=== PATIENT | male | born 1960 | race American Indian/Alaskan Native ===

== ENCOUNTER 2021-09-22 07:23 | Inpatient (IN) | payer MEDICAID, OTHER ==
[2021-09-22] MEDS ORDERED: Lactated Ringers 1,000 ML IV ONE (07:45)
[2021-09-22] MEDS ORDERED: Cyanocobalamin (Vitamin B12) 1,000 MCG/ML SDV IM ONE (07:45)
[2021-09-22] MEDS ORDERED: fentaNYL 100 MCG/2 ML SDV ONE (08:05)
[2021-09-22] MEDS ORDERED: Midazolam 1 MG/ML 2 ML SDV ONE (08:05)
[2021-09-22] MEDS ORDERED: Propofol 200 MG/20 ML SDV ONE (08:06)
[2021-09-22] MEDS ORDERED: Glycopyrrolate 0.2 MG/ML 2 ML SDV IVPUSH ONE (08:15)
[2021-09-22] MEDS ORDERED: MVI, Adult with Vitamin K 10 ML, Thiamine 200 MG, Zinc/Copper/Manganese/Selenium 1 ML i... IV ONE ×4 (08:45)
[2021-09-22] MEDS ORDERED: Ondansetron 4 MG/2 ML SDV IVPUSH PRN (14:00)
[2021-09-22] MEDS: Dextrose 5%-Lactated Ringers 1,000 ML IV SCH (14:00)
[2021-09-22] MEDS: Pantoprazole 40 MG Vial IVPUSH SCH (14:58)
[2021-09-22] MEDS: Magnesium Sulfate/Water 2 GM in Premix Bag 1 BAG IV SCH ×2 (15:02→20:10)
[2021-09-22] MEDS ORDERED: Cyclobenzaprine 10 MG Tab PO PRN (20:05)
[2021-09-22] MEDS ORDERED: Acetaminophen 325 MG Tab PO PRN (20:05)
[2021-09-22] MEDS: Mirtazapine 15 MG Tab PO SCH (20:13)
[2021-09-22] MEDS: Citalopram 20 MG Tab PO SCH (20:13)
[2021-09-22] MEDS: Tamsulosin 0.4 MG Cap.ER PO SCH (20:52)
[2021-09-22] MEDS ORDERED: Melatonin 3 MG Tab PO SCH (21:00)
[2021-09-22] MEDS ORDERED: Carvedilol 3.125 MG Tab PO ONE (21:00)
[2021-09-23] MEDS: Magnesium Sulfate/Water 2 GM in Premix Bag 1 BAG IV SCH ×4 (02:12→20:25)
[2021-09-23] MEDS: Dextrose 5%-Lactated Ringers 1,000 ML IV SCH ×3 (04:07→23:42)
[2021-09-23] MEDS: Carvedilol 3.125 MG Tab PO SCH ×2 (06:10→22:27)
[2021-09-23] MEDS: Isosorbide Mononitrate 30 MG Tab.ER PO SCH (06:10)
[2021-09-23] MEDS ORDERED: Meropenem 500 MG SDV ONE (07:44)
[2021-09-23] MEDS ORDERED: Lidocaine 1% with EPINEPHrine 1:100,000 50 ML MDV ONE (07:44)
[2021-09-23] MEDS ORDERED: Bupivacaine 0.5% 50 ML MDV ONE (07:44)
[2021-09-23] MEDS ORDERED: fentaNYL 250 MCG/5 ML SDV ONE ×2 (08:15→16:27)
[2021-09-23] MEDS ORDERED: Ondansetron 4 MG/2 ML SDV ONE (08:16)
[2021-09-23] MEDS ORDERED: Glycopyrrolate 0.2 MG/ML 5 ML MDV ONE (08:16)
[2021-09-23] MEDS ORDERED: Dexamethasone 4 MG/ML SDV ONE (08:16)
[2021-09-23] MEDS ORDERED: Neostigmine Methylsulfate 1 MG/ML 5 ML Syringe ONE (08:16)
[2021-09-23] MEDS ORDERED: Propofol 200 MG/20 ML SDV ONE ×2 (08:16→14:54)
[2021-09-23] MEDS ORDERED: Succinylcholine 200 MG/10 ML MDV ONE (08:16)
[2021-09-23] MEDS ORDERED: Rocuronium 50 MG/5 ML Vial ONE (08:16)
[2021-09-23] MEDS: Aspirin 81 MG Tab.EC PO SCH (08:21)
[2021-09-23] MEDS: Levothyroxine 112 MCG Tab PO SCH (08:42)
[2021-09-23] MEDS: Levothyroxine 25 MCG Tab PO SCH (08:43)
[2021-09-23] MEDS: Lisinopril 10 MG Tab PO SCH (08:44)
[2021-09-23] MEDS: amLODIPine 5 MG Tab PO SCH (08:45)
--- NOTE | 2021-09-23 08:57 | PN ---
DATE OF SERVICE: 09/23/2021 SUBJECTIVE: Nacho was admitted yesterday for partial small bowel obstruction after he had an upper endoscopy. Nacho was admitted after the EGD. He has been sick for approximately 9 months. He will take 2 to 3 bites of food, nauseated, midabdominal pain, crampy. He will usually throw up or get dry heaves. Weight loss to 60 pounds. He was hospitalized in December 2020 for pancreatitis, history of alcohol abuse, chronic pain. He uses medical cannabis and either takes pills or vapes, and he said this will help with nausea and then he also will be able to eat a little bit of his evening meal. PAST MEDICAL HISTORY: Laparoscopic Dolores-en-Y gastric bypass surgery was 04/13/2006. Consult weight was 358.7, preop weight 364, and today's weight is 192 pounds 4.8 ounces. Unspecified surgical malabsorption, B12 deficiency, COPD, coronary artery disease, diabetes mellitus, GERD, history of heart artery stent, hyperlipidemia, alcohol dependence, pancreatitis, MRSA, myocardial infarction, and unstable angina. MEDICATIONS: See EMR. Currently, Nacho is n.p.o. for an exploratory laparotomy. Case to follow today. OBJECTIVE: GENERAL: Nacho Skinner is a pleasant 61-year-old male. He is alert, orientated. VITAL SIGNS: TPR 98.1, 82, 16. Blood pressure 156/92. HEENT: Negative. NECK: Supple. HEART: Regular rate and rhythm. LUNGS: Reveal decreased breath sounds in bases. He does have rhonchi with coughing this morning and no wheezing or rales. ABDOMEN: Soft, flat, generalized tenderness. Liver is enlarged. EXTREMITIES: Without peripheral edema. SCDs have not been put on yet. NEUROLOGIC: Intact. PSYCHIATRIC: Mood and affect appropriate. ASSESSMENT: 1. Partial small bowel obstruction. 2. Upper gastric endoscopy, date 09/22/2021. Surgeon: Bebeto Leahy MD. PLAN: 1. Consent has been signed for exploratory laparotomy with release of small bowel obstruction, possible small bowel resection and liver biopsy. 2. Check CBC, CMP, mag, phos this morning. Nacho has not been taking his Levemir for about 2 months because his blood sugars have been getting in the 50s, around 2 to 3 a.m., so he did stop it. He is to remain n.p.o., orders to be written postoperatively. We will evaluate p.r.n. or in a.m. Asya Mathews PA-C /[id number]
[2021-09-23] MEDS ORDERED: RANOLAZINE 500 MG PO SCH (09:00)
[2021-09-23] MEDS ORDERED: Citalopram 20 MG Tab PO SCH (09:00)
[2021-09-23] MEDS ORDERED: cefOXitin 2 GM in Sodium Chloride 0.9% 50 ML IV ONE (10:00)
[2021-09-23] MEDS ORDERED: Ketamine 500 MG/5 ML MDV IV SCH (10:00)
[2021-09-23] MEDS ORDERED: Ketamine 22 MG in Sodium Chloride 0.9% 19.78 ML IV SCH (10:00)
--- NOTE | 2021-09-23 13:02 | OR ---
DATE OF PROCEDURE: 09/22/2021 SURGEON: Bebeto Leahy MD PREOPERATIVE DIAGNOSIS: Postprandial upper abdominal pain and cramping, status post Dolores-en- Y gastric bypass. POSTOPERATIVE DIAGNOSES: 1. Postprandial upper abdominal pain and cramping, status post Dolores-en-Y gastric bypass. 2. Normal upper gastrointestinal endoscopy, status post Dolores-en-Y gastric bypass with symptoms consistent with partial small-bowel obstruction. OPERATIVE PROCEDURE: Upper GI endoscopy. ANESTHESIA: IV sedation. INDICATIONS FOR PROCEDURE: This is a 61-year-old male, status post Dolores-en-Y gastric bypass, presenting with roughly 6 months period of postprandial crampy abdominal pain. This has not been responsive to Protonix or other medical therapies. Plan is to proceed with an upper GI endoscopy with biopsies and/or dilation as indicated. Potential risks including bleeding and perforation were discussed, and the patient wishes to proceed. DETAILS OF PROCEDURE: The patient was taken to the operating room, placed in a left lateral decubitus position. IV sedation was administered after which the upper GI endoscope was passed orally through the esophagus to the gastric pouch and gastrojejunostomy roughly 20 cm into the Dolores limb. Findings overall were entirely normal. There were no areas of significant inflammation, stricturing, or other pathology being identified. The scope was then withdrawn and the procedure was then concluded. The patient's symptoms at this point would appear most likely related to the patient's small bowel obstruction. CT scan of the abdomen obtained yesterday showed some fatty liver and some possible inflammation of the bypassed portion of the stomach. There did appear to be an area of probable stricturing in the small bowel at a point of previous anastomosis with the bowel proximal to that being quite dilated. The patient was also noted to have some liver function tests that were elevated but normal bilirubin. Plan will be to proceed with an exploratory laparotomy tomorrow with release of any bowel obstruction and bowel resection as indicated. Otherwise, if the findings are not entirely explanatory for the patient's symptoms, one might consider endoscopy into the bypassed stomach and resection of that if there is significant inflammation as the patient has been on Protonix now for several months. Liver biopsies will also be obtained to assess the patient's histologic status of the liver at this point. Potential risks of the procedure including bleeding, infection, leaks from GI tract closures, problems with persistent or recurrent symptoms over time were all reviewed along with the remote possibility of cardiopulmonary, septic, or hemorrhagic complications leading to were discussed. This was also reviewed with the patient's over the phone and they wished to proceed. Bebeto Leahy MD /[id number]
[2021-09-23] MEDS: Pantoprazole 40 MG Vial IVPUSH SCH (14:17)
[2021-09-23] MEDS ORDERED: HYDROmorphone/Normal Saline 15 MG/30 ML PCA IV PRN (15:37)
[2021-09-23] MEDS ORDERED: Naloxone 0.4 MG/ML SDV IV PRN (16:00)
[2021-09-23] MEDS ORDERED: Lactated Ringers 1,000 ML ONE (16:28)
[2021-09-23] MEDS ORDERED: Ondansetron 4 MG/2 ML SDV IVPUSH ONE (18:09)
[2021-09-23] MEDS ORDERED: hydrOXYzine HCL 100 MG/2 ML SDV IM PRN (20:09)
[2021-09-23] MEDS ORDERED: Metoclopramide 10 MG/2 ML SDV IVPUSH PRN (20:10)
[2021-09-23] MEDS ORDERED: diphenhydrAMINE 50 MG/ML SDV IVPUSH PRN (20:11)
[2021-09-23] MEDS ORDERED: Nitroglycerin 0.4 MG Tab.SL SL PRN ×2 (20:13→20:22)
[2021-09-23] MEDS ORDERED: Scopolamine 1.5 MG Transdermal Patch TRDERM PRN (20:14)
[2021-09-23] MEDS ORDERED: Acetaminophen 500 MG Tab PO PRN (20:19)
[2021-09-23] MEDS ORDERED: Labetalol 20 MG/4 ML Syringe IVPUSH PRN (20:25)
[2021-09-23] MEDS ORDERED: Cyclobenzaprine 10 MG Tab PO PRN (20:39)
[2021-09-23] MEDS ORDERED: Lactated Ringers 500 ML IV ONE (20:42)
[2021-09-23] MEDS: cefOXitin 2 GM in Sodium Chloride 0.9% 50 ML IV SCH (22:21)
[2021-09-23] MEDS: Melatonin 3 MG Tab PO SCH (22:26)
[2021-09-23] MEDS: Tamsulosin 0.4 MG Cap.ER PO SCH (22:26)
[2021-09-23] MEDS: Citalopram 20 MG Tab PO SCH (22:27)
[2021-09-23] MEDS: Mirtazapine 15 MG Tab PO SCH (22:28)
[2021-09-23] MEDS: Acetaminophen 500 MG Tab PO SCH (22:31)
[2021-09-23] MEDS: Heparin Sodium 5,000 Units/ML Vial SUBCUT SCH (22:31)
[2021-09-24] MEDS: Albuterol/Ipratropium 3.0-0.5 MG/3 ML Neb Soln INH PRN ×2 (01:00→22:42)
[2021-09-24] MEDS ORDERED: Furosemide 20 MG/2 ML VIAL IVPUSH ONE ×3 (01:15→23:32)
[2021-09-24] MEDS: Magnesium Sulfate/Water 2 GM in Premix Bag 1 BAG IV SCH ×2 (01:55→07:15)
[2021-09-24] MEDS ORDERED: Iopamidol 612 MG/ML 50 ML SDV PO ONE (03:28)
[2021-09-24] MEDS: cefOXitin 2 GM in Sodium Chloride 0.9% 50 ML IV SCH ×4 (04:38→21:51)
[2021-09-24] MEDS: Dextrose 5%-Lactated Ringers 1,000 ML IV SCH ×3 (04:40→13:38)
[2021-09-24] MEDS: Acetaminophen 500 MG Tab PO SCH ×3 (06:05→21:16)
[2021-09-24] MEDS ORDERED: Ondansetron 4 MG/2 ML SDV IVPUSH PRN (06:58)
[2021-09-24] MEDS ORDERED: Naloxone 0.4 MG/ML SDV IVPUSH PRN (06:58)
[2021-09-24] MEDS ORDERED: diphenhydrAMINE 50 MG/ML SDV IVPUSH PRN (06:58)
[2021-09-24] MEDS ORDERED: diphenhydrAMINE 25 MG Cap PO PRN (06:58)
[2021-09-24] MEDS ORDERED: HYDROmorphone/Normal Saline 15 MG/30 ML PCA IV PRN (07:00)
[2021-09-24] MEDS: Levothyroxine 25 MCG Tab PO SCH (07:14)
[2021-09-24] MEDS: Levothyroxine 112 MCG Tab PO SCH (07:15)
[2021-09-24] MEDS: amLODIPine 5 MG Tab PO SCH (08:08)
[2021-09-24] MEDS: Carvedilol 3.125 MG Tab PO SCH ×2 (08:09→21:40)
[2021-09-24] MEDS: Lisinopril 10 MG Tab PO SCH (08:09)
[2021-09-24] MEDS: Isosorbide Mononitrate 30 MG Tab.ER PO SCH (08:09)
[2021-09-24] MEDS: Aspirin 81 MG Tab.EC PO SCH (08:09)
[2021-09-24] MEDS: Celecoxib 200 MG Cap PO SCH ×2 (08:17→21:15)
[2021-09-24] MEDS: Docusate Sodium 100 MG Cap PO SCH ×2 (10:14→21:16)
[2021-09-24] MEDS: Bisacodyl 5 MG Tab PO SCH ×2 (10:14→21:16)
[2021-09-24] MEDS: Heparin Sodium 5,000 Units/ML Vial SUBCUT SCH ×2 (10:15→21:16)
[2021-09-24] MEDS ORDERED: Lactated Ringers 250 ML IV ONE (11:25)
[2021-09-24] MEDS ORDERED: MVI, Adult with Vitamin K 10 ML, Thiamine 200 MG, Zinc/Copper/Manganese/Selenium 1 ML i... IV SCH ×4 (16:00)
[2021-09-24] MEDS: MVI, Adult with Vitamin K 10 ML, Thiamine 200 MG, Zinc/Copper/Manganese/Selenium 1 ML i... IV SCH ×4 (16:26)
[2021-09-24] MEDS: Pantoprazole 40 MG Delayed-Release Granules 1 Packet PO SCH (17:23)
[2021-09-24] MEDS: Melatonin 3 MG Tab PO SCH (21:15)
[2021-09-24] MEDS: Citalopram 20 MG Tab PO SCH (21:15)
[2021-09-24] MEDS: Tamsulosin 0.4 MG Cap.ER PO SCH (21:16)
[2021-09-24] MEDS: Mirtazapine 15 MG Tab PO SCH (21:16)
[2021-09-24] MEDS ORDERED: Lactated Ringers 500 ML IV SCH (21:45)
[2021-09-25] MEDS: cefOXitin 2 GM in Sodium Chloride 0.9% 50 ML IV SCH ×3 (03:17→15:48)
[2021-09-25] MEDS: Dextrose 5%-Lactated Ringers 1,000 ML IV SCH ×2 (03:19→08:16)
[2021-09-25] MEDS: Acetaminophen 500 MG Tab PO SCH ×3 (05:55→21:56)
[2021-09-25] MEDS: Levothyroxine 112 MCG Tab PO SCH (07:47)
[2021-09-25] MEDS: Levothyroxine 25 MCG Tab PO SCH (07:47)
[2021-09-25] MEDS: Aspirin 81 MG Tab.EC PO SCH (08:40)
[2021-09-25] MEDS: Docusate Sodium 100 MG Cap PO SCH ×2 (08:41→21:54)
[2021-09-25] MEDS: Isosorbide Mononitrate 30 MG Tab.ER PO SCH (08:41)
[2021-09-25] MEDS: Carvedilol 3.125 MG Tab PO SCH ×2 (08:41→21:58)
[2021-09-25] MEDS: Celecoxib 200 MG Cap PO SCH ×2 (08:42→21:54)
[2021-09-25] MEDS: Bisacodyl 5 MG Tab PO SCH ×2 (08:42→21:54)
[2021-09-25] MEDS ORDERED: PRASUGREL 10 MG PO SCH (09:00)
[2021-09-25] MEDS ORDERED: Cyanocobalamin (Vitamin B12) 1,000 MCG/ML SDV IM ONE (09:00)
[2021-09-25] MEDS: Heparin Sodium 5,000 Units/ML Vial SUBCUT SCH ×2 (10:02→22:01)
[2021-09-25] MEDS ORDERED: Furosemide 20 MG/2 ML VIAL IVPUSH ONE (13:00)
[2021-09-25] MEDS: Potassium Phos in 0.9 % NaCl 15 MMOL in Premix Bag 1 BAG IV SCH ×4 (13:58→17:50)
[2021-09-25] MEDS: Pantoprazole 40 MG Delayed-Release Granules 1 Packet PO SCH (17:47)
[2021-09-25] MEDS: MVI, Adult with Vitamin K 10 ML, Thiamine 200 MG, Zinc/Copper/Manganese/Selenium 1 ML i... IV SCH ×4 (17:47)
[2021-09-25] MEDS: Tamsulosin 0.4 MG Cap.ER PO SCH (21:54)
[2021-09-25] MEDS: Citalopram 20 MG Tab PO SCH (21:54)
[2021-09-25] MEDS: Mirtazapine 15 MG Tab PO SCH (21:55)
[2021-09-25] MEDS: Melatonin 3 MG Tab PO SCH (21:55)
[2021-09-26] MEDS ORDERED: Bumetanide 2.5 MG/10 ML MDV IVPUSH ONE (00:36)
[2021-09-26] MEDS: Dextrose 5%-Lactated Ringers 1,000 ML IV SCH (04:27)
[2021-09-26] MEDS: Acetaminophen 500 MG Tab PO SCH ×3 (05:50→21:30)
[2021-09-26] MEDS: Levothyroxine 112 MCG Tab PO SCH (07:16)
[2021-09-26] MEDS: Levothyroxine 25 MCG Tab PO SCH (07:16)
--- NOTE | 2021-09-26 08:29 | PN ---
DATE OF SERVICE: 09/26/2021 SUBJECTIVE: Nacho had a bowel movement yesterday. He is on a step-2 diet. Oral intake 1190, urine output 1965 via Montemayor catheter. Pain has been controlled with the FINANCIAL ANALYST INTERN. LABORATORY DATA: White count 4.4, hemoglobin 11.9. He did receive 2 units of packed red blood cells over the weekend. Potassium is 3.7, creatinine is 1.6. Glucose 126. Liver function tests remain to be elevated and BNP is 740. Albumin was 1.7 and it is 2.1. He is receiving 25 g of albumin IV daily. Amlodipine and lisinopril are being held because of blood pressure less than 110 systolic. OBJECTIVE: GENERAL: Nacho Skinner is a pleasant 61-year-old male. VITAL SIGNS: TPR is 97.8, 68, and 16. Blood pressure 104/55. HEENT: Negative. NECK: Supple. HEART: Regular rate and rhythm. LUNGS: Clear. ABDOMEN: Dressings dry and intact. Abdominal binder is on. EXTREMITIES: Without peripheral edema. ASSESSMENT: Exploratory laparotomy with lysis of adhesions. 1. Small-bowel resection. 2. Small bowel strictureplasty. 3. Rectosigmoid resection with coloproctostomy. 4. Needle liver biopsy. 5. Placement of Interceed mesh. POSTOPERATIVE DIAGNOSES: 1. Small bowel obstruction secondary to: a. Strictureplasty of the jejunojejunostomy. b. Separate stricture at the Dolores limb at previous enteroenterostomy. 2. Chronic sigmoid colon volvulus. 3. Hepatomegaly with elevated liver function tests. Date of procedure 09/23/2021. Surgeon: Bebeto Leahy MD. PLAN: 1. Discontinue FINANCIAL ANALYST INTERN and continuous pulse ox. 2. Step-3 gastric bypass diet. 3. Dilaudid 2 mg q.4 hours p.r.n. pain. 4. Saline lock IV. 5. Discontinue Celebrex due to elevated creatinine. 6. Leave Montemayor catheter in for accurate intake and output. 7. Check CBC, CMP, mag, phos, and BNP in a.m. 8. We will evaluate p.r.n. or in a.m. Asya Mathews PA-C /[id number]
[2021-09-26] MEDS: Carvedilol 3.125 MG Tab PO SCH ×2 (08:47→21:26)
[2021-09-26] MEDS: Docusate Sodium 100 MG Cap PO SCH ×2 (08:47→21:26)
[2021-09-26] MEDS: Isosorbide Mononitrate 30 MG Tab.ER PO SCH (08:47)
[2021-09-26] MEDS: Aspirin 81 MG Tab.EC PO SCH (08:47)
[2021-09-26] MEDS: Bisacodyl 5 MG Tab PO SCH ×2 (08:47→21:29)
[2021-09-26] MEDS: HYDROmorphone 2 MG Tab PO PRN ×3 (08:53→21:36)
--- NOTE | 2021-09-26 09:50 | CR ---
UGI [facility] HISTORY: Postbariatric surgery/revision FINDINGS: Patient swallowed water-soluble contrast. Upright views of the abdomen show no evidence of extravasation or obstruction. IMPRESSION: Status post bariatric surgery/revision No extravasation or obstruction seen
[2021-09-26] MEDS: Heparin Sodium 5,000 Units/ML Vial SUBCUT SCH ×2 (11:56→21:30)
--- NOTE | 2021-09-26 11:56 | PN ---
DATE OF SERVICE: 09/25/2021 The patient has been afebrile. Blood pressure is coming up a little bit 97 to 103 range over the last few hours. Heart rate remains in the 60s to 70s. He is a little bit more alert today. No flatus or bowel movement as of yet. Creatinine has bumped to 1.7. Urine output seems to be picking up a little bit overnight. We will give him some additional volume today one unit of packed RBCs as hemoglobin is down to 9.8, add some albumin, and his potassium and phosphate are marginally low and those will be supplemented today. Otherwise, maximize activity and work with pulmonary toilet. Leave the Montemayor catheter in for today to monitor urine output. Bebeto Leahy MD /[id number]
--- NOTE | 2021-09-26 12:12 | PN ---
DATE OF SERVICE: 09/24/2021 The patient intermittently had some relatively low blood pressures, presently is running more in the 90 to 100 systolic range, and urine output has been adequate after a dose of Lasix during the night at which time his lungs were a little bit crackly, but this has improved. He appears to be somewhat overly sleepy and we will decrease the demand dose on the SHREDDED FILLER CIGAR MAKER MACHINE. Otherwise, the upper GI x-ray looked good and we will begin a step-2 diet today. His labs this morning are pending. We will recheck some again tomorrow morning, maximize activity, and work with pulmonary toilet. Bebeto Leahy MD /[id number]
[2021-09-26] MEDS: Pantoprazole 40 MG Delayed-Release Granules 1 Packet PO SCH (15:38)
[2021-09-26] MEDS: Citalopram 20 MG Tab PO SCH (21:26)
[2021-09-26] MEDS: Tamsulosin 0.4 MG Cap.ER PO SCH (21:29)
[2021-09-26] MEDS: Melatonin 3 MG Tab PO SCH (21:29)
[2021-09-26] MEDS: Mirtazapine 15 MG Tab PO SCH (21:30)
[2021-09-27] MEDS: Acetaminophen 500 MG Tab PO SCH ×3 (05:54→21:00)
[2021-09-27] MEDS: Levothyroxine 25 MCG Tab PO SCH (08:37)
[2021-09-27] MEDS: Levothyroxine 112 MCG Tab PO SCH (08:37)
[2021-09-27] MEDS: Carvedilol 3.125 MG Tab PO SCH ×2 (08:37→21:00)
[2021-09-27] MEDS: Isosorbide Mononitrate 30 MG Tab.ER PO SCH (08:38)
[2021-09-27] MEDS: Bisacodyl 5 MG Tab PO SCH ×2 (08:38→21:01)
[2021-09-27] MEDS: Aspirin 81 MG Tab.EC PO SCH (08:38)
[2021-09-27] MEDS: amLODIPine 5 MG Tab PO SCH ×3 (08:39→08:41)
[2021-09-27] MEDS: Docusate Sodium 100 MG Cap PO SCH ×2 (08:39→20:58)
[2021-09-27] MEDS: Lisinopril 10 MG Tab PO SCH ×3 (08:39→08:41)
[2021-09-27] MEDS: HYDROmorphone 2 MG Tab PO PRN ×3 (08:52→20:59)
--- NOTE | 2021-09-27 08:54 | PN ---
DATE OF SERVICE: 09/27/2021 SUBJECTIVE: Nacho states he is feeling better today. Vital signs have been stable. Oral intake 1190. Urine output is 1965. REVIEW OF SYSTEMS: Remainder of review of systems negative for any pertinent positives and negatives. OBJECTIVE: GENERAL: Nacho Skinner is a pleasant 61-year-old male. VITAL SIGNS: TPR is 97.9, 73, 16, blood pressure 129/67. HEENT: Negative. NECK: Supple. HEART: Regular rate and rhythm. LUNGS: Clear. ABDOMEN: Aquacel dressings on. Abdominal binder is on. EXTREMITIES: Without peripheral edema. ASSESSMENT: Exploratory laparotomy with lysis of adhesions. 1. Small bowel resection. 2. Small bowel strictureplasty. 3. Rectosigmoid resection with coloproctostomy. 4. Liver biopsy. 5. Placement of Interceed mesh. POSTOPERATIVE DIAGNOSES: 1. Small bowel obstruction secondary to: a. Strictureplasty of the jejunojejunostomy. b. Separate stricture at the Dolores limb at previous enteroenterostomy. 2. Chronic sigmoid colon volvulus. 3. Hepatomegaly with elevated liver function tests. Date of procedure 09/23/2021. Surgeon: Bebeto Leahy MD PLAN: 1. Discontinue Montemayor. 2. Restart amlodipine and lisinopril. 3. Check CBC, CMP, mag, phos, and BNP in a.m. 4. Protein supplements q.i.d. and h.s. 5. Replace Aquacel dressing. 6. Continue use of incentive spirometer and ambulation. 7. We will evaluate p.r.n. or in a.m. 8. Plan discharge in a.m. Asya Mathews PA-C /[id number]
[2021-09-27] MEDS: Heparin Sodium 5,000 Units/ML Vial SUBCUT SCH ×2 (10:43→21:00)
[2021-09-27] MEDS: Pantoprazole 40 MG Delayed-Release Granules 1 Packet PO SCH (15:54)
[2021-09-27] MEDS: Citalopram 20 MG Tab PO SCH (20:58)
[2021-09-27] MEDS: Mirtazapine 15 MG Tab PO SCH (20:58)
[2021-09-27] MEDS: Melatonin 3 MG Tab PO SCH (20:59)
[2021-09-27] MEDS: Tamsulosin 0.4 MG Cap.ER PO SCH (20:59)
[2021-09-28] MEDS: Acetaminophen 500 MG Tab PO SCH (05:28)
[2021-09-28] MEDS: HYDROmorphone 2 MG Tab PO PRN ×2 (05:29→12:43)
[2021-09-28] MEDS: Levothyroxine 25 MCG Tab PO SCH (07:19)
[2021-09-28] MEDS: Levothyroxine 112 MCG Tab PO SCH (07:19)
[2021-09-28] MEDS: Docusate Sodium 100 MG Cap PO SCH (09:09)
[2021-09-28] MEDS: Carvedilol 3.125 MG Tab PO SCH (09:09)
[2021-09-28] MEDS: Bisacodyl 5 MG Tab PO SCH (09:10)
[2021-09-28] MEDS: amLODIPine 5 MG Tab PO SCH (09:11)
[2021-09-28] MEDS: Isosorbide Mononitrate 30 MG Tab.ER PO SCH (09:11)
[2021-09-28] MEDS: Aspirin 81 MG Tab.EC PO SCH (09:11)
[2021-09-28] MEDS: Lisinopril 10 MG Tab PO SCH (09:12)
[2021-09-28] MEDS: Heparin Sodium 5,000 Units/ML Vial SUBCUT SCH (09:13)
--- NOTE | 2021-09-28 09:39 | DISCH ---
ADMISSION DIAGNOSES: Postprandial abdominal pain, nausea, weight loss 60 pounds, status post Dolores-en-Y gastric bypass surgery, unspecified surgical malabsorption, vitamin B complex deficiency, hypoalbuminemia, elevated liver function tests, history of pancreatitis, peripheral edema. DISCHARGE DIAGNOSES: 1. Upper gastrointestinal endoscopy. Date 09/22/2021 for postprandial upper abdominal pain and cramping status post Dolores-en-Y gastric bypass surgery. 2. Normal upper gastrointestinal endoscopy, status post Dolores-en-Y gastric bypass surgery. Symptoms consistent with partial small bowel obstruction. Date of procedure 09/22/2021. Surgeon: Bebeto Leahy MD. 3. Exploratory laparotomy with lysis of adhesions. a. Small bowel resection. b. Small bowel strictureplasty. c. Rectosigmoid resection with coloproctostomy. d. Needle liver biopsy. e. Placement of Interceed mesh. POSTOPERATIVE DIAGNOSES: 1. Small bowel obstruction secondary to: a. Strictureplasty in the jejunojejunostomy. b. Separate stricture of the Dolores limb. Had previous enteroenterostomy. 2. Chronic sigmoid colon volvulus. 3. Hepatomegaly with elevated liver function tests. 4. Date of procedure 09/23/2021. Surgeon: Bebeto Leahy MD. HISTORY: Nacho Skinner is a 61-year-old male, who reports a history of postprandial abdominal pain with nausea, vomiting for approximately 9 months. After preoperative evaluation, discussion of possible risks and possible complications, he wished to proceed with surgical procedure. HOSPITAL COURSE: Nacho had his exploratory laparotomy on 09/23/2021. He had no operative complications. On postop day 1, he had low blood pressures running 90 to 100 in the systolic range. Urine output was low. He was given a dose of Lasix and that increased. He was overly sleepy. The TANK STORAGE SUPERVISOR was discontinued. The upper GI looked good and he was started on a step 2 gastric bypass diet. On 09/25/2021, blood pressure was coming up a little. Heart rate was 60s to 70s. He was more alert. Creatinine did go up to 1.7. Urine output was picking up a little. He did receive 1 unit of packed red blood cells for a hemoglobin of 9.8 and given albumin 25 g daily. This was ordered until discharge. His potassium and phosphate were replaced. On 09/26/2021, labs were continued being monitored. He was started on a step 3 gastric bypass diet. His TANK STORAGE SUPERVISOR was discontinued and labs were continued to be monitored. On 09/27/2021, he did have a bowel movement. Montemayor was discontinued. His amlodipine and lisinopril were able to be restarted. He was started on protein supplements. Pain was controlled with Dilaudid. On 09/28/2021, he was able to be discharged to home. LABS BEFORE DISCHARGE: Hemoglobin 10.9, calcium 7.9, magnesium 1.7, total bilirubin bumped up to 2, AST 52, ALT 88, alkaline phos 363. BNP 2716. Total protein 14.8, albumin is 2.3. OBJECTIVE: GENERAL: Nacho Skinner is a pleasant 61-year-old male. VITAL SIGNS: Height is 5 feet 11 inches, weight is 192 pounds, BMI 26.8. TPR 98.2, 72, 16, blood pressure 126/56. HEENT: Negative. NECK: Supple. HEART: Regular rate and rhythm. LUNGS: Clear. ABDOMEN: Aquacel dressing is on. Stapled incision. Abdominal binder is on. EXTREMITIES: Without peripheral edema. DISPOSITION: Discharged to home. CONDITION: Stable and improving. HOME MEDICATIONS: Include to resume his home medication with exception of no Levemir. He is to start on carvedilol 6.25 mg p.o. b.i.d., Lipitor 80 mg p.o. bedtime, Norvasc 10 mg p.o. daily, Flomax 0.4 mg p.o. daily, ranolazine 500 mg p.o. b.i.d., Effient 10 mg p.o. daily, pantoprazole 40 mg p.o. daily, nitroglycerin 0.4 mg sublingual as directed, Remeron 30 mg at h.s., melatonin-pyridoxine 10 mg p.o. at bedtime, magnesium chloride 64 mg p.o. b.i.d., Claritin 10 mg p.o. daily, Imodium A-D 2 mg p.o. q.i.d. p.r.n. diarrhea, lisinopril 30 mg p.o. daily, levothyroxine 137 p.o. daily, lactobacillus 2 tabs p.o. b.i.d., Imdur 60 mg p.o. daily, Celexa 20 mg p.o. daily, cannabis extract use as directed, aspirin 81 mg p.o. daily, albuterol inhaler one puff inhalation q.4 hours p.r.n. shortness of breath. He is to resume recommended vitamins, postbariatric vitamins, and supplements. FOLLOWUP APPOINTMENT: With Asya Mathews PA-C, on 09/28/2021 at 11 a.m. at [facility] to check CBC, CMP, mag, and BNP prior to that appointment. DIET: Step 3 gastric bypass diet. Drink 8 to 10 glasses of water a day. ACTIVITY: As tolerated. No lifting greater than 10 pounds for 6 weeks. Driving: Do not drive for 1 week. May shower. Keep operative site clean and dry. Wear abdominal binder for 6 weeks and then as tolerated. Remove Aquacel dressing in 3 days. Notify provider if any fever, increased pain, swelling, redness, drainage, nausea, or vomiting. SPECIAL INSTRUCTION: Use incentive spirometer 10 times every hour while awake and check blood sugars 3 times daily. /[id number]
[2021-09-28 11:00] VITALS: BP 135/81; PULSE 72
--- NOTE | 2021-10-08 17:00 | OR ---
DATE OF PROCEDURE: 09/23/2021 SURGEON: Bebeto Leahy MD PREOPERATIVE DIAGNOSES: 1. Partial small bowel obstruction. 2. Elevated liver function tests. POSTOPERATIVE DIAGNOSES: 1. Partial small bowel obstruction secondary to: a. Stricture at jejunojejunostomy. b. Separate stricture in Dolores limb at previous anastomosis site. 2. Chronic sigmoid colon volvulus. 3. Elevated liver function tests associated with marked hepatomegaly. OPERATIVE PROCEDURES: Exploratory laparotomy with lysis of adhesions and: 1. Small bowel resection (16882). 2. Small bowel stricturoplasty (74762). 3. Rectosigmoid colon resection with coloproctostomy (32320). 4. Needle liver biopsy (93606). 5. Placement of Interceed mesh to limit recurrent adhesion formation between the abdominal wall and underlying viscera (44683). ANESTHESIA: General. EMERGENCY MEDICINE: Asya Mathews PA-C INDICATION FOR PROCEDURE: This is a 61-year-old status post previous Dolores-en-Y gastric bypass, presenting with findings suggestive of a partial small bowel obstruction. He was also noted to have elevated liver function tests. Plan was to proceed with an exploratory laparotomy with lysis of adhesions and bowel resection as indicated. Liver biopsies will also be planned. Potential risks of the procedure including bleeding, infection, leaks from various GI tract closures, problems with bowel obstruction recurring, and lastly the remote possibility of cardiopulmonary, septic, or hemorrhagic complications leading to were discussed, and the patient wishes to proceed. DETAILS OF PROCEDURE: The patient was taken to the operating room and placed in a supine position. After general endotracheal anesthesia was induced, a Montemayor catheter was inserted and the abdomen prepped and draped. A midline incision was then made from the umbilicus roughly a handsbreadth toward the xiphoid into the full-thickness abdominal wall. Upon entering the peritoneal cavity, general exploration was undertaken. After his initial adhesions were taken down, the patient was noted to have fairly marked hepatomegaly with liver being somewhat fatty infiltrated in appearance. No cirrhosis was grossly evident nor was there evidence of any significant portal hypertension. Two points of partial bowel obstruction were seen, one where the Dolores limb entered the jejunojejunostomy which was angulated secondary to chronic adhesion disease and after lysis of those adhesions was still somewhat narrowed. The patient had a previous anastomosis in the portions of the Dolores limb which was also somewhat strictured. Additionally, the patient was noted to have a strikingly redundant sigmoid colon and this was noted to be lying in a rotated position with a chronic crease at the mesentery indicative of a chronic at least intermittent sigmoid colon volvulus. At this point, the Dolores limb was addressed in terms of the stricture. At the point of stricture, the antimesenteric border was opened and a 60 mm stapler was then placed into the lumen with 1 arm on each of the sides of the bowel as they laid up against each other. This was fired and the common opening was then closed transversely with the BOLA stapler. At that point then, the Dolores limb was detached from the jejunojejunostomy with the BOLA stapler. The small bowel was resected at that point and this was then reattached to a point roughly 20 cm to the previous jejunojejunostomy which was otherwise unremarkable. An internal firing of the Endo-BOLA 60 mm stapler was accomplished followed by closure with a purple load at the common opening. Angles were anastomosed and reinforced with some 3-0 Vicryl stitch and the mesentery closed with 2-0 Vicryl stitch. The rectosigmoid resection was then accomplished with division of the upper rectum and the mid sigmoid colon. These structures were divided with BOLA purple loads and the mesentery intervening was closed with mesenteric staple loads and the specimen delivered from the field. The coloproctostomy was then accomplished between the mid sigmoid colon and the rectum with 2 internal firings of the Endo BOLA connors loads followed by the common opening closed with purple loads. Angles of anastomosis and the mesenteric defect were reapproximated with some 3-0 Vicryl stitch. This anastomosis was reinforced with some fibrin sealant as well. Needle biopsies from the left lobe of the liver were then obtained and sent for histologic evaluation. Minimal bleeding from the biopsy sites was controlled with electrocautery. At this point, the abdomen was irrigated with antibiotic-containing saline solution. No further problems were noted. An Interceed mesh was then placed under the incision to limit recurrent adhesion formation between the pelvic and abdominal wall and surrounding viscera. The midline fascia was then approximated with #2 Vicryl stitch, the subcutaneous tissue with 3-0 and 4-0 Vicryl stitch and the skin with samantha. Dressing was applied. The patient was taken to the recovery room in satisfactory condition. Prior to closure, bilateral transversus abdominis plane blocks were placed and the incision itself was anesthetized with 1% lidocaine mixed with Marcaine. Physician water quality assistant, Asya Mathews, played an essential role in assisting in this case, helping to position the patient, retract structures as needed as well as suturing and cutting sutures when indicated. Her presence improved patient safety and decreased the operative time. Bebeto Leahy MD /[id number]
== END 2021-09-28 15:00 | disposition home or self-care (01) | DRG 329 ==
LOC: JP.SDS 07:23 → EDSTATUS 08:15 → JP.2SS 12:45
PROVIDERS: ADMIT Surgery; ATTEND Surgery
PROC: 0DJ08ZZ Inspection of Upper Intestinal Tract, Via Natural or Artificial Opening Endoscopic (ICD-10-PCS; 2021-09-22)
PROC: 0DB80ZZ Excision of Small Intestine, Open Approach (ICD-10-PCS; 2021-09-23)
PROC: 0D1N0ZP Bypass Sigmoid Colon to Rectum, Open Approach (ICD-10-PCS; 2021-09-23)
PROC: 0FB20ZX Excision of Left Lobe Liver, Open Approach, Diagnostic (ICD-10-PCS; 2021-09-23)
PROC: 0DBN0ZZ Excision of Sigmoid Colon, Open Approach (ICD-10-PCS; 2021-09-23)
PROC: 0DBP0ZZ Excision of Rectum, Open Approach (ICD-10-PCS; 2021-09-23)
PROC: 3E0M05Z Introduction of Adhesion Barrier into Peritoneal Cavity, Open Approach (ICD-10-PCS; 2021-09-23)
PROC: 30233N1 Transfusion of Nonautologous Red Blood Cells into Peripheral Vein, Percutaneous Approach (ICD-10-PCS; principal; 2021-09-24)
DX: K95.89 Other complications of other bariatric procedure (principal); K56.2 Volvulus; K91.2 Postsurgical malabsorption, not elsewhere classified; K56.600 Partial intestinal obstruction, unspecified as to cause; R16.0 Hepatomegaly, not elsewhere classified; E53.9 Vitamin B deficiency, unspecified; E88.09 Other disorders of plasma-protein metabolism, not elsewhere classified; R79.89 Other specified abnormal findings of blood chemistry; J44.9 Chronic obstructive pulmonary disease, unspecified; I25.10 Atherosclerotic heart disease of native coronary artery without angina pectoris; K21.9 Gastro-esophageal reflux disease without esophagitis; E78.5 Hyperlipidemia, unspecified; F10.10 Alcohol abuse, uncomplicated; Z79.899 Other long term (current) drug therapy
CPT/HCPCS: 36415; 36430; 74240; 74240-26; 80053; 82947; 83735; 83880; 84100; 85025; 85027; 86850; 86900; 86901; 86920; 86922; 88307; 88313; 93005; 94640; A9270-GY; C9113; J0171; J0330; J0694; J1100; J1170; J1644; J1940; J2185; J2250; J2405; J2704; J2710; J2795; J3010; J3411; J3420; J3475; J3490; J7120; J7121; J7620-GY; P9016; P9047; Q9967

== ENCOUNTER 2022-06-13 04:28 | Inpatient (IN) | payer MEDICAID ==
[~2022-06-13 04:28] MED LIST: Dextrose 5%-Lactated Ringers 1,000 ML IV SCH
[2022-06-13] MEDS ORDERED: Lidocaine 1% with EPINEPHrine 1:100,000 50 ML MDV ONE (06:48)
[2022-06-13] MEDS ORDERED: Bupivacaine 0.5% 50 ML MDV ONE (06:48)
[2022-06-13] MEDS ORDERED: Meropenem 500 MG SDV ONE (06:48)
[2022-06-13] MEDS ORDERED: Diltiazem 120 MG Cap.CD PO ONE (07:17)
[2022-06-13] MEDS ORDERED: Rocuronium 50 MG/5 ML Vial ONE ×2 (07:20→11:03)
[2022-06-13] MEDS ORDERED: Succinylcholine 200 MG/10 ML MDV ONE (07:20)
[2022-06-13] MEDS ORDERED: Neostigmine Methylsulfate 1 MG/ML 5 ML Syringe ONE (07:20)
[2022-06-13] MEDS ORDERED: Ondansetron 4 MG/2 ML SDV ONE (07:20)
[2022-06-13] MEDS ORDERED: Dexamethasone 4 MG/ML SDV ONE (07:20)
[2022-06-13] MEDS ORDERED: fentaNYL 250 MCG/5 ML SDV ONE ×2 (07:20→11:02)
[2022-06-13] MEDS ORDERED: Glycopyrrolate 0.2 MG/ML 5 ML MDV ONE (07:20)
[2022-06-13] MEDS ORDERED: Propofol 200 MG/20 ML SDV ONE (07:20)
[2022-06-13] MEDS ORDERED: Acetaminophen 500 MG Tab PO ONE (07:30)
[2022-06-13] MEDS ORDERED: Carvedilol 3.125 MG Tab PO ONE (07:30)
[2022-06-13] MEDS ORDERED: Albuterol/Ipratropium 3.0-0.5 MG/3 ML Neb Soln NEB ONE (08:00)
[2022-06-13] MEDS ORDERED: cefOXitin 2 GM in Sodium Chloride 0.9% 50 ML IV ONE (08:45)
[2022-06-13] MEDS ORDERED: Ketamine 500 MG/5 ML MDV IV SCH (09:00)
[2022-06-13] MEDS ORDERED: Ketamine 22 MG in Sodium Chloride 0.9% 19.78 ML IV SCH (09:00)
[2022-06-13] MEDS ORDERED: Linezolid 600 MG/300 ML Premix Bag IRR ONE (09:32)
[2022-06-13] MEDS ORDERED: Naloxone 0.4 MG/ML SDV IVPUSH PRN (10:21)
[2022-06-13] MEDS ORDERED: Ondansetron 4 MG/2 ML SDV IVPUSH PRN ×2 (10:21→16:00)
[2022-06-13] MEDS ORDERED: diphenhydrAMINE 25 MG Cap PO PRN (10:21)
[2022-06-13] MEDS ORDERED: diphenhydrAMINE 50 MG/ML SDV IVPUSH PRN ×2 (10:21→16:00)
[2022-06-13] MEDS: HYDROmorphone/Normal Saline 6 MG/30 ML PCA Vial IV PRN (10:35)
[2022-06-13] MEDS ORDERED: Naloxone 0.4 MG/ML SDV IV PRN (11:00)
[2022-06-13] MEDS ORDERED: Lactated Ringers 1,000 ML ONE (11:19)
[2022-06-13] MEDS ORDERED: fentaNYL 100 MCG/2 ML SDV ONE (12:24)
[2022-06-13] MEDS ORDERED: fentaNYL 50 MCG/ML SDV IVPUSH ONE (13:29)
[2022-06-13] MEDS ORDERED: hydrOXYzine HCL 100 MG/2 ML SDV IM ONE (13:29)
[2022-06-13] MEDS ORDERED: Labetalol 100 MG/20 ML MDV IV ONE (13:44)
[2022-06-13] MEDS ORDERED: Dextrose 5%-Lactated Ringers 1,000 ML IV SCH (15:15)
[2022-06-13] MEDS ORDERED: Lactated Ringers 1,000 ML IV SCH (15:30)
[2022-06-13] MEDS ORDERED: Nitroglycerin 0.4 MG Tab.SL SL PRN (15:32)
[2022-06-13] MEDS ORDERED: Melatonin 3 MG Tab PO PRN (15:34)
[2022-06-13] MEDS ORDERED: Metoclopramide 10 MG/2 ML SDV IVPUSH PRN (16:00)
[2022-06-13] MEDS ORDERED: hydrOXYzine HCL 100 MG/2 ML SDV IM PRN (16:00)
[2022-06-13] MEDS ORDERED: Labetalol 20 MG/4 ML Syringe IVPUSH PRN (16:00)
[2022-06-13] MEDS ORDERED: Albuterol/Ipratropium 3.0-0.5 MG/3 ML Neb Soln INH PRN (16:00)
[2022-06-13] MEDS ORDERED: Pantoprazole 40 MG Vial IVPUSH SCH (16:00)
[2022-06-13] MEDS ORDERED: Acetaminophen 500 MG Tab PO PRN (16:00)
[2022-06-13] MEDS ORDERED: Sodium Chloride 0.9% 800 ML IV ONE (16:00)
[2022-06-13] MEDS ORDERED: MVI, Adult with Vitamin K 10 ML, Thiamine 200 MG, Zinc/Copper/Manganese/Selenium 1 ML i... IV SCH ×4 (16:00)
[2022-06-13] MEDS ORDERED: 50% Dextrose in Water 50 ML Syringe IVPUSH PRN (16:00)
[2022-06-13] MEDS: cefOXitin 2 GM in Sodium Chloride 0.9% 50 ML IV SCH ×2 (16:00→21:53)
[2022-06-13] MEDS ORDERED: Glucagon,Human Recombinant 1 MG Vial IM PRN (16:00)
[2022-06-13] MEDS: Acetaminophen 500 MG Tab PO SCH (16:28)
[2022-06-13] MEDS: Sodium Ferric Gluconate Cmplex 250 MG in Sodium Chloride 0.9% 100 ML IV SCH (16:33)
[2022-06-13] MEDS: Insulin Lispro 100 Unit/ML 3 ML KwikPen SUBCUT SCH ×2 (16:45→21:46)
[2022-06-13] MEDS: Cyclobenzaprine 10 MG Tab PO PRN (16:51)
[2022-06-13] MEDS: Heparin Sodium 5,000 Units/ML Vial SUBCUT SCH (19:15)
[2022-06-13] MEDS: MVI, Adult with Vitamin K 10 ML, Thiamine 200 MG, Zinc/Copper/Manganese/Selenium 1 ML i... IV SCH ×4 (20:48)
[2022-06-13] MEDS: Tamsulosin 0.4 MG Cap.ER PO SCH (20:49)
[2022-06-13] MEDS: Carvedilol 3.125 MG Tab PO SCH (20:49)
[2022-06-13] MEDS: atorvaSTATin 20 MG Tab PO SCH (20:50)
[2022-06-13] MEDS: Lisinopril 10 MG Tab PO SCH (20:52)
[2022-06-13] MEDS: Mirtazapine 15 MG Tab PO SCH (20:53)
[2022-06-13] MEDS: Albuterol/Ipratropium 3.0-0.5 MG/3 ML Neb Soln INH SCH (21:01)
[2022-06-14] MEDS: Acetaminophen 500 MG Tab PO SCH ×4 (00:19→23:20)
[2022-06-14] MEDS: HYDROmorphone/Normal Saline 6 MG/30 ML PCA Vial IV PRN ×3 (00:51→22:55)
[2022-06-14] MEDS: cefOXitin 2 GM in Sodium Chloride 0.9% 50 ML IV SCH ×4 (03:53→22:48)
[2022-06-14] MEDS ORDERED: Iopamidol 612 MG/ML 50 ML SDV PO STA (04:13)
[2022-06-14] MEDS: Insulin Lispro 100 Unit/ML 3 ML KwikPen SUBCUT SCH ×4 (05:00→22:41)
[2022-06-14] MEDS: Heparin Sodium 5,000 Units/ML Vial SUBCUT SCH ×2 (05:02→17:46)
[2022-06-14] MEDS ORDERED: Ondansetron 4 MG Tab.DIS PO PRN (07:20)
[2022-06-14] MEDS ORDERED: Lactated Ringers 1,000 ML IV SCH (07:21)
[2022-06-14] MEDS: Levothyroxine 50 MCG Tab PO SCH (07:27)
[2022-06-14] MEDS: Albuterol/Ipratropium 3.0-0.5 MG/3 ML Neb Soln INH SCH ×4 (07:30→20:23)
[2022-06-14] MEDS: Cyclobenzaprine 10 MG Tab PO PRN (07:34)
[2022-06-14] MEDS: Isosorbide Mononitrate 30 MG Tab.ER PO SCH (09:03)
[2022-06-14] MEDS: Loratadine 10 MG Tab PO SCH (09:04)
[2022-06-14] MEDS: Diltiazem 120 MG Cap.CD PO SCH (09:04)
[2022-06-14] MEDS: Carvedilol 3.125 MG Tab PO SCH ×2 (09:04→20:19)
[2022-06-14] MEDS: amLODIPine 5 MG Tab PO SCH (09:05)
[2022-06-14] MEDS: Aspirin 81 MG Tab.EC PO SCH (09:05)
[2022-06-14] MEDS: Citalopram 20 MG Tab PO SCH (09:05)
[2022-06-14] MEDS: Sodium Ferric Gluconate Cmplex 250 MG in Sodium Chloride 0.9% 100 ML IV SCH (15:39)
[2022-06-14] MEDS: Pantoprazole 40 MG Tab.CR PO SCH (15:46)
[2022-06-14] MEDS ORDERED: Sodium Chloride 0.9% 400 ML IV ONE (16:00)
[2022-06-14] MEDS: MVI, Adult with Vitamin K 10 ML, Thiamine 200 MG, Zinc/Copper/Manganese/Selenium 1 ML i... IV SCH ×4 (20:04)
[2022-06-14] MEDS: Lisinopril 10 MG Tab PO SCH (20:18)
[2022-06-14] MEDS: Tamsulosin 0.4 MG Cap.ER PO SCH (20:20)
[2022-06-14] MEDS: atorvaSTATin 20 MG Tab PO SCH (20:20)
[2022-06-14] MEDS: Mirtazapine 15 MG Tab PO SCH (20:22)
[2022-06-15] MEDS: Insulin Lispro 100 Unit/ML 3 ML KwikPen SUBCUT SCH ×4 (04:40→22:04)
[2022-06-15] MEDS: cefOXitin 2 GM in Sodium Chloride 0.9% 50 ML IV SCH ×2 (04:48→11:08)
[2022-06-15] MEDS: Heparin Sodium 5,000 Units/ML Vial SUBCUT SCH ×2 (05:40→17:40)
[2022-06-15] MEDS: Cyclobenzaprine 10 MG Tab PO PRN ×2 (05:50→19:36)
[2022-06-15] MEDS: Albuterol/Ipratropium 3.0-0.5 MG/3 ML Neb Soln INH SCH ×4 (06:58→21:07)
[2022-06-15] MEDS ORDERED: Furosemide 20 MG/2 ML VIAL IVPUSH ONE ×2 (08:00→16:00)
[2022-06-15] MEDS: Docusate Sodium 100 MG Cap PO SCH ×2 (08:38→20:26)
[2022-06-15] MEDS: Bisacodyl 5 MG Tab PO SCH ×2 (08:38→20:27)
[2022-06-15] MEDS: Aspirin 81 MG Tab.EC PO SCH (08:39)
[2022-06-15] MEDS: Levothyroxine 50 MCG Tab PO SCH (08:39)
[2022-06-15] MEDS: Acetaminophen 500 MG Tab PO SCH ×2 (08:39→15:05)
[2022-06-15] MEDS: Diltiazem 120 MG Cap.CD PO SCH (08:40)
[2022-06-15] MEDS: Carvedilol 3.125 MG Tab PO SCH ×2 (08:40→20:26)
[2022-06-15] MEDS: Isosorbide Mononitrate 30 MG Tab.ER PO SCH (08:40)
[2022-06-15] MEDS: Citalopram 20 MG Tab PO SCH (08:41)
[2022-06-15] MEDS: amLODIPine 5 MG Tab PO SCH (08:41)
[2022-06-15] MEDS: Loratadine 10 MG Tab PO SCH (08:41)
[2022-06-15] MEDS: HYDROmorphone 2 MG Tab PO PRN ×3 (08:51→21:08)
[2022-06-15] MEDS ORDERED: Cyanocobalamin (Vitamin B12) 1,000 MCG/ML SDV IM ONE (09:00)
[2022-06-15] MEDS: Pantoprazole 40 MG Tab.CR PO SCH (15:05)
[2022-06-15] MEDS: Tamsulosin 0.4 MG Cap.ER PO SCH (20:27)
[2022-06-15] MEDS: Lisinopril 10 MG Tab PO SCH (20:27)
[2022-06-15] MEDS: atorvaSTATin 20 MG Tab PO SCH (20:27)
[2022-06-15] MEDS: Mirtazapine 15 MG Tab PO SCH (20:28)
[2022-06-16] MEDS: Acetaminophen 500 MG Tab PO SCH ×2 (00:04→09:16)
[2022-06-16] MEDS: HYDROmorphone 2 MG Tab PO PRN ×2 (02:59→09:20)
[2022-06-16] MEDS: Insulin Lispro 100 Unit/ML 3 ML KwikPen SUBCUT SCH ×2 (04:58→10:16)
[2022-06-16] MEDS: Heparin Sodium 5,000 Units/ML Vial SUBCUT SCH (05:14)
[2022-06-16 05:19] LABS: ESTIMATED GFR 97 mL/min (>60)
[2022-06-16] MEDS: Albuterol/Ipratropium 3.0-0.5 MG/3 ML Neb Soln INH SCH ×2 (07:28→10:42)
[2022-06-16] MEDS: Diltiazem 120 MG Cap.CD PO SCH (09:13)
[2022-06-16] MEDS: Isosorbide Mononitrate 30 MG Tab.ER PO SCH (09:14)
[2022-06-16] MEDS: Carvedilol 3.125 MG Tab PO SCH (09:15)
[2022-06-16] MEDS: amLODIPine 5 MG Tab PO SCH (09:15)
[2022-06-16] MEDS: Docusate Sodium 100 MG Cap PO SCH (09:15)
[2022-06-16] MEDS: Loratadine 10 MG Tab PO SCH (09:15)
[2022-06-16] MEDS: Citalopram 20 MG Tab PO SCH (09:16)
[2022-06-16] MEDS: Levothyroxine 50 MCG Tab PO SCH (09:16)
[2022-06-16] MEDS: Aspirin 81 MG Tab.EC PO SCH (09:16)
[2022-06-16] MEDS: Bisacodyl 5 MG Tab PO SCH (09:17)
[2022-06-16 10:40] VITALS: BP 111/40; PULSE 78
== END 2022-06-16 11:55 | disposition home or self-care (01) | DRG 330 ==
LOC: JP.SDSSCHI 06:41 → JP.SDS 06:41 → EDSTATUS 08:15 → UNDOADMIN 13:15 → JP.MS 13:15
PROVIDERS: ADMIT Surgery; ATTEND Surgery
PROC: 0WUF0JZ Supplement Abdominal Wall with Synthetic Substitute, Open Approach (ICD-10-PCS; principal; 2022-06-13)
PROC: 0DT80ZZ Resection of Small Intestine, Open Approach (ICD-10-PCS; 2022-06-13)
PROC: 0DQ80ZZ Repair Small Intestine, Open Approach (ICD-10-PCS; 2022-06-13)
PROC: 0FB00ZX Excision of Liver, Open Approach, Diagnostic (ICD-10-PCS; 2022-06-13)
DX: K43.0 Incisional hernia with obstruction, without gangrene (principal); K56.51 Intestinal adhesions [bands], with partial obstruction; E03.9 Hypothyroidism, unspecified; D50.9 Iron deficiency anemia, unspecified; E11.65 Type 2 diabetes mellitus with hyperglycemia; I10 Essential (primary) hypertension; F32.A Depression, unspecified; I48.91 Unspecified atrial fibrillation; I25.10 Atherosclerotic heart disease of native coronary artery without angina pectoris; J45.909 Unspecified asthma, uncomplicated; E66.9 Obesity, unspecified; Z68.29 Body mass index [BMI] 29.0-29.9, adult; Z79.01 Long term (current) use of anticoagulants; Z79.4 Long term (current) use of insulin; Z93.4 Other artificial openings of gastrointestinal tract status
CPT/HCPCS: 36415; 74240; 80053; 82947; 83735; 83880; 84100; 84443; 85025; 88302; 88307; 88313; 94640; A9270-GY; C1713; C1781; C9113; J0171; J0330; J0694; J1100; J1170; J1644; J1815; J1815-GY; J1940; J2020; J2185; J2405; J2704; J2710; J2795; J2916; J3010; J3410; J3411; J3420; J3490; J7030; J7040; J7120; J7121; J7620; Q0162; Q9967

== ENCOUNTER → 2023-02-20 | Day surgery (SDC) | payer MEDICAID ==
[~2023-02-20] MED LIST changes: +Cyanocobalamin (Vitamin B12) 1,000 MCG/ML SDV IM ONE; -Dextrose 5%-Lactated Ringers 1,000 ML IV SCH; +Lactated Ringers 1,000 ML IV SCH; +MVI, Adult with Vitamin K 10 ML, Thiamine 200 MG, Zinc/Copper/Manganese/Selenium 1 ML i... IV ONE; +Midazolam 1 MG/ML 2 ML SDV ONE; +Propofol 200 MG/20 ML SDV ONE; +fentaNYL 50 MCG/ML SDV ONE
[2023-02-20 11:40] VITALS: BP 160/88; PULSE 58
== END ==
LOC: JP.SDS 08:22
PROVIDERS: ATTEND Surgery
DX: R10.9 Unspecified abdominal pain (principal); F17.200 Nicotine dependence, unspecified, uncomplicated; Z98.0 Intestinal bypass and anastomosis status; Z98.84 Bariatric surgery status
CPT/HCPCS: 43235; 87635; J2250; J2704; J3010; J3411; J3420; J7120; J3490; U0002

== ENCOUNTER 2023-03-15 07:43 | Inpatient (IN) | payer MEDICAID ==
[~2023-03-15 07:43] MED LIST changes: +Bupivacaine 0.5% 50 ML MDV ONE; -Cyanocobalamin (Vitamin B12) 1,000 MCG/ML SDV IM ONE; -Lactated Ringers 1,000 ML IV SCH; +Lidocaine 1% with EPINEPHrine 1:100,000 50 ML MDV ONE; -MVI, Adult with Vitamin K 10 ML, Thiamine 200 MG, Zinc/Copper/Manganese/Selenium 1 ML i... IV ONE; +Meropenem 500 MG SDV ONE; -Midazolam 1 MG/ML 2 ML SDV ONE; -Propofol 200 MG/20 ML SDV ONE; +Scopolamine 1.5 MG Transdermal Patch TOP SCH; -fentaNYL 50 MCG/ML SDV ONE
[2023-03-15] MEDS ORDERED: Dextrose 5%-Lactated Ringers 1,000 ML IV SCH (08:00)
[2023-03-15 08:07] LABS: HEMATOCRIT 37.8 % (38.4-49.7); HEMOGLOBIN 13.2 g/dL (12.9-16.9); MEAN CORPUSCULAR HEMOGLOBIN 31.7 pg (31.6-35.5); MEAN CORPUSCULAR HGB CONC 34.9 g/dL (31.6-35.5); MEAN CORPUSCULAR VOLUME 90.9 fL (81.4-99.0); RED BLOOD CELL COUNT 4.16 M/uL (4.14-5.76); WHITE BLOOD CELL COUNT,WBC 4.3 K/uL (3.2-11.0)
[2023-03-15 08:41] LABS: A/G RATIO 1.1 (1.2-2.2); ALANINE AMINOTRANSFERASE,ALT 37 U/L (12-78); ALBUMIN 3.4 g/dL (3.4-5.0); ALKALINE PHOSPHATASE 178 U/L (46-116); ASPARTATE AMNIOTRANSFERASE,AST 26 U/L (15-37); BILIRUBIN TOTAL 0.5 mg/dL (0.2-1.0); BLOOD UREA NITROGEN,BUN 10 mg/dL (7-18); CALCIUM 8.5 mg/dL (8.5-10.1); CARBON DIOXIDE,CO2 26 mmol/L (21-32); CHLORIDE,CL 106 mmol/L (100-108); CREATININE 0.8 mg/dL (0.8-1.3); EST CRCL DRUG DOSING (CG) 100.66 mL/min; ESTIMATED GFR 99 mL/min (>60); FERRITIN 34 ng/ml (8-388); GLUCOSE RANDOM 131 mg/dL (74-106); MAGNESIUM 1.6 mg/dL (1.8-2.4); PHOSPHORUS 3.8 mg/dL (2.5-4.9); POTASSIUM,K 3.6 mmol/L (3.6-5.2); PRO B-TYPE NATRIUR PEPT,BNPPRO 1068 pg/mL (5-125); PROTEIN TOTAL,TP 6.6 g/dL (6.4-8.2); SODIUM,NA 141 mmol/L (140-148); TSH ULTRASENSITIVE 2.894 uIU/mL (0.358-3.740)
[2023-03-15] MEDS ORDERED: fentaNYL 250 MCG/5 ML SDV ONE ×2 (08:55→10:11)
[2023-03-15] MEDS ORDERED: Neostigmine Methylsulfate 1 MG/ML 5 ML Syringe ONE (08:56)
[2023-03-15] MEDS ORDERED: Glycopyrrolate 0.2 MG/ML 5 ML MDV ONE (08:56)
[2023-03-15] MEDS ORDERED: Ondansetron 4 MG/2 ML SDV ONE (08:56)
[2023-03-15] MEDS ORDERED: Rocuronium 50 MG/5 ML Vial ONE (08:56)
[2023-03-15] MEDS ORDERED: Dexamethasone 4 MG/ML SDV ONE (08:56)
[2023-03-15] MEDS ORDERED: Succinylcholine 200 MG/10 ML MDV ONE (08:56)
[2023-03-15] MEDS ORDERED: Propofol 200 MG/20 ML SDV ONE (08:56)
[2023-03-15] MEDS ORDERED: cefOXitin 2 GM in Sodium Chloride 0.9% 50 ML IV ONE (09:00)
[2023-03-15] MEDS ORDERED: Naloxone 0.4 MG/ML SDV IVPUSH PRN (09:06)
[2023-03-15] MEDS ORDERED: diphenhydrAMINE 50 MG/ML SDV IVPUSH PRN ×2 (09:06→13:00)
[2023-03-15] MEDS ORDERED: Ondansetron 4 MG/2 ML SDV IVPUSH PRN ×2 (09:06→13:00)
[2023-03-15] MEDS ORDERED: diphenhydrAMINE 25 MG Cap PO PRN (09:06)
[2023-03-15] MEDS ORDERED: Ketamine 500 MG/5 ML MDV IV SCH (09:15)
[2023-03-15] MEDS ORDERED: Ropivacaine 40 ML, dexAMETHasone 8 MG, EPINEPHrine 0.4 MG, Sodium Chloride 0.9% 37.6 ML NERVRT SCH ×4 (09:15)
[2023-03-15] MEDS ORDERED: Ketamine 22 MG in Sodium Chloride 0.9% 19.78 ML IV SCH (09:15)
[2023-03-15] MEDS ORDERED: Labetalol 20 MG/4 ML Syringe ONE (10:14)
[2023-03-15] MEDS ORDERED: Linezolid 600 MG/300 ML Premix Bag IRR ONE (10:24)
[2023-03-15] MEDS: HYDROmorphone/Normal Saline 6 MG/30 ML PCA Vial IV PRN ×2 (10:27→16:24)
[2023-03-15] MEDS ORDERED: 50% Dextrose in Water 50 ML Syringe IVPUSH PRN ×2 (11:50→12:03)
[2023-03-15] MEDS ORDERED: Glucose Gel 15 GM in 37.5 GM Tube PO PRN (11:50)
[2023-03-15] MEDS ORDERED: Glucagon,Human Recombinant 1 MG Vial IM PRN ×2 (11:50→12:03)
[2023-03-15] MEDS ORDERED: Naloxone 0.4 MG/ML SDV IV PRN (12:00)
[2023-03-15] MEDS ORDERED: Cyclobenzaprine 10 MG Tab PO PRN (12:02)
[2023-03-15] MEDS ORDERED: Insulin Lispro 100 Unit/ML 3 ML KwikPen SUBCUT ONE (12:03)
[2023-03-15] MEDS ORDERED: Labetalol 20 MG/4 ML Syringe IVPUSH PRN (13:00)
[2023-03-15] MEDS ORDERED: Metoclopramide 10 MG/2 ML SDV IVPUSH PRN (13:00)
[2023-03-15] MEDS ORDERED: Albuterol/Ipratropium 3.0-0.5 MG/3 ML Neb Soln INH PRN (13:00)
[2023-03-15] MEDS ORDERED: Acetaminophen 500 MG Tab PO PRN (13:00)
[2023-03-15] MEDS ORDERED: hydrOXYzine HCl 50 MG/ML SDV IM PRN (13:00)
[2023-03-15] MEDS: Lactated Ringers 1,000 ML IV SCH (13:23)
[2023-03-15] MEDS ORDERED: Pantoprazole 40 MG Vial IVPUSH SCH (14:00)
[2023-03-15] MEDS: Albuterol/Ipratropium 3.0-0.5 MG/3 ML Neb Soln INH SCH ×2 (14:04→21:00)
[2023-03-15] MEDS: Sodium Ferric Gluconate Cmplex 250 MG in Sodium Chloride 0.9% 100 ML IV SCH (15:39)
[2023-03-15] MEDS: cefOXitin 2 GM in Sodium Chloride 0.9% 50 ML IV SCH ×2 (15:43→21:00)
[2023-03-15] MEDS: Insulin Lispro 100 Unit/ML 3 ML KwikPen SUBCUT SCH ×2 (16:25→21:01)
[2023-03-15] MEDS: Magnesium Sulfate/Water 2 GM in Premix Bag 1 BAG IV SCH ×2 (16:26→21:02)
[2023-03-15] MEDS: Carvedilol 3.125 MG Tab PO SCH (16:26)
[2023-03-15] MEDS: Diltiazem IR 30 MG Tab PO SCH ×2 (16:26→21:01)
[2023-03-15] MEDS: Acetaminophen 500 MG Tab PO SCH (17:05)
[2023-03-15] MEDS ORDERED: Insulin Lispro 100 Unit/ML 3 ML KwikPen SUBCUT SCH (18:00)
[2023-03-15] MEDS ORDERED: MVI, Adult with Vitamin K 10 ML, Thiamine 200 MG, Zinc/Copper/Manganese/Selenium 1 ML i... IV SCH ×4 (18:00)
[2023-03-15] MEDS ORDERED: Lactated Ringers 500 ML IV SCH (18:45)
[2023-03-15] MEDS ORDERED: Metoprolol Succinate 25 MG Tab.ER PO SCH (21:00)
[2023-03-15] MEDS: Heparin Sodium 5,000 Units/ML Vial SUBCUT SCH (21:01)
[2023-03-15] MEDS: Insulin Glargine,Human Rec. Analog 100 Units/ML 3 ML Pen SUBCUT SCH (21:01)
[2023-03-15] MEDS ORDERED: Lactated Ringers 500 ML IV ONE (21:45)
[2023-03-16] MEDS: Lactated Ringers 1,000 ML IV SCH ×2 (00:21→06:45)
[2023-03-16] MEDS ORDERED: Iopamidol 612 MG/ML 30 ML SDV PO STA (00:33)
[2023-03-16] MEDS: Acetaminophen 500 MG Tab PO SCH ×3 (01:28→18:11)
[2023-03-16] MEDS: HYDROmorphone/Normal Saline 6 MG/30 ML PCA Vial IV PRN ×2 (01:37→15:09)
[2023-03-16] MEDS: cefOXitin 2 GM in Sodium Chloride 0.9% 50 ML IV SCH ×4 (03:15→21:27)
[2023-03-16] MEDS: Magnesium Sulfate/Water 2 GM in Premix Bag 1 BAG IV SCH ×4 (03:15→22:20)
[2023-03-16] MEDS: Insulin Lispro 100 Unit/ML 3 ML KwikPen SUBCUT SCH ×4 (04:36→22:20)
[2023-03-16] MEDS: Diltiazem IR 30 MG Tab PO SCH ×4 (06:45→21:26)
[2023-03-16] MEDS: Albuterol/Ipratropium 3.0-0.5 MG/3 ML Neb Soln INH SCH ×4 (07:44→20:40)
[2023-03-16] MEDS: Citalopram 20 MG Tab PO SCH (08:07)
[2023-03-16] MEDS: Celecoxib 200 MG Cap PO SCH ×2 (08:07→20:16)
[2023-03-16] MEDS: Isosorbide Mononitrate 30 MG Tab.ER PO SCH (08:07)
[2023-03-16] MEDS: Heparin Sodium 5,000 Units/ML Vial SUBCUT SCH ×2 (08:08→20:17)
[2023-03-16] MEDS: Carvedilol 3.125 MG Tab PO SCH ×2 (08:08→18:12)
[2023-03-16] MEDS: Lisinopril 10 MG Tab PO SCH (08:11)
[2023-03-16] MEDS ORDERED: Lactated Ringers 1,000 ML IV SCH ×2 (09:30→18:00)
[2023-03-16] MEDS: SCOPOLAMINE PATCH CHECK TOP SCH (10:05)
[2023-03-16] MEDS: Sodium Ferric Gluconate Cmplex 250 MG in Sodium Chloride 0.9% 100 ML IV SCH (14:16)
[2023-03-16] MEDS ORDERED: MVI, Adult with Vitamin K 10 ML, Thiamine 200 MG, Zinc/Copper/Manganese/Selenium 1 ML i... IV SCH ×4 (16:00)
[2023-03-16] MEDS: Pantoprazole 40 MG Delayed-Release Granules 1 Packet PO SCH (16:47)
[2023-03-16] MEDS: Insulin Glargine,Human Rec. Analog 100 Units/ML 3 ML Pen SUBCUT SCH (22:21)
[2023-03-17] MEDS: Dextrose 5%-Lactated Ringers 1,000 ML IV SCH ×2 (00:27→10:16)
[2023-03-17] MEDS: Acetaminophen 500 MG Tab PO SCH ×3 (02:45→17:13)
[2023-03-17] MEDS: HYDROmorphone/Normal Saline 6 MG/30 ML PCA Vial IV PRN (03:50)
[2023-03-17] MEDS: Magnesium Sulfate/Water 2 GM in Premix Bag 1 BAG IV SCH ×2 (04:48→10:12)
[2023-03-17] MEDS: Insulin Lispro 100 Unit/ML 3 ML KwikPen SUBCUT SCH ×4 (04:48→20:57)
[2023-03-17 05:03] LABS: HEMATOCRIT 28.9 % (38.4-49.7); HEMOGLOBIN 9.7 g/dL (12.9-16.9); MEAN CORPUSCULAR HEMOGLOBIN 31.5 pg (31.6-35.5); MEAN CORPUSCULAR HGB CONC 33.6 g/dL (31.6-35.5); MEAN CORPUSCULAR VOLUME 93.8 fL (81.4-99.0); RED BLOOD CELL COUNT 3.08 M/uL (4.14-5.76)
[2023-03-17 05:27] LABS: A/G RATIO 0.9 (1.2-2.2); ALANINE AMINOTRANSFERASE,ALT 60 U/L (12-78); ALBUMIN 2.4 g/dL (3.4-5.0); ALKALINE PHOSPHATASE 137 U/L (46-116); ASPARTATE AMNIOTRANSFERASE,AST 41 U/L (15-37); BILIRUBIN TOTAL 0.2 mg/dL (0.2-1.0); BLOOD UREA NITROGEN,BUN 12 mg/dL (7-18); CALCIUM 7.9 mg/dL (8.5-10.1); CARBON DIOXIDE,CO2 28 mmol/L (21-32); CHLORIDE,CL 102 mmol/L (100-108); CREATININE 0.8 mg/dL (0.8-1.3); ESTIMATED GFR 99 mL/min (>60); GLUCOSE RANDOM 87 mg/dL (74-106); PHOSPHORUS 3.4 mg/dL (2.5-4.9); POTASSIUM,K 4.1 mmol/L (3.6-5.2); PRO B-TYPE NATRIUR PEPT,BNPPRO 719 pg/mL (5-125); PROTEIN TOTAL,TP 5.1 g/dL (6.4-8.2); SODIUM,NA 135 mmol/L (140-148)
[2023-03-17 05:33] LABS: ANION GAP 9.1 mmol/L (5.0-14.0)
[2023-03-17] MEDS: Diltiazem IR 30 MG Tab PO SCH ×4 (06:15→21:04)
[2023-03-17] MEDS: Albuterol/Ipratropium 3.0-0.5 MG/3 ML Neb Soln INH SCH ×4 (07:04→20:31)
[2023-03-17] MEDS: Celecoxib 200 MG Cap PO SCH ×2 (08:03→20:55)
[2023-03-17] MEDS: Isosorbide Mononitrate 30 MG Tab.ER PO SCH (08:03)
[2023-03-17] MEDS: Carvedilol 3.125 MG Tab PO SCH ×2 (08:04→16:22)
[2023-03-17] MEDS: SCOPOLAMINE PATCH CHECK TOP SCH (08:04)
[2023-03-17] MEDS: Citalopram 20 MG Tab PO SCH (08:04)
[2023-03-17] MEDS: Heparin Sodium 5,000 Units/ML Vial SUBCUT SCH ×2 (08:04→21:02)
[2023-03-17] MEDS ORDERED: Cyanocobalamin (Vitamin B12) 1,000 MCG/ML SDV IM ONE (09:00)
[2023-03-17] MEDS: Docusate Sodium 100 MG Cap PO SCH ×2 (10:10→20:55)
[2023-03-17] MEDS: Lisinopril 10 MG Tab PO SCH (10:10)
[2023-03-17] MEDS: Bisacodyl 5 MG Tab PO SCH ×2 (10:10→20:55)
[2023-03-17] MEDS: HYDROmorphone 2 MG Tab PO PRN ×2 (13:05→20:55)
[2023-03-17] MEDS: Pantoprazole 40 MG Delayed-Release Granules 1 Packet PO SCH (16:22)
[2023-03-18] MEDS: Acetaminophen 500 MG Tab PO SCH ×2 (03:02→10:43)
[2023-03-18] MEDS: HYDROmorphone 2 MG Tab PO PRN ×3 (03:02→12:25)
[2023-03-18] MEDS: Diltiazem IR 30 MG Tab PO SCH ×2 (05:45→10:44)
[2023-03-18] MEDS: Albuterol/Ipratropium 3.0-0.5 MG/3 ML Neb Soln INH SCH ×2 (07:18→10:31)
[2023-03-18] MEDS: Insulin Lispro 100 Unit/ML 3 ML KwikPen SUBCUT SCH ×2 (08:34→11:32)
[2023-03-18] MEDS: Celecoxib 200 MG Cap PO SCH (08:35)
[2023-03-18] MEDS: Citalopram 20 MG Tab PO SCH (08:35)
[2023-03-18] MEDS: Carvedilol 3.125 MG Tab PO SCH (08:37)
[2023-03-18] MEDS: Isosorbide Mononitrate 30 MG Tab.ER PO SCH (08:38)
[2023-03-18] MEDS: Docusate Sodium 100 MG Cap PO SCH (08:39)
[2023-03-18] MEDS: Bisacodyl 5 MG Tab PO SCH (08:40)
[2023-03-18] MEDS: Lisinopril 10 MG Tab PO SCH (08:40)
[2023-03-18] MEDS: Heparin Sodium 5,000 Units/ML Vial SUBCUT SCH (08:43)
[2023-03-18 08:44] VITALS: BP 145/74; PULSE 54
== END 2023-03-18 12:30 | disposition home or self-care (01) | DRG 329 ==
LOC: JP.SDS 07:43 → JP.MS 11:25
PROVIDERS: ADMIT Surgery; ATTEND Surgery
PROC: 0DT80ZZ Resection of Small Intestine, Open Approach (ICD-10-PCS; principal; 2023-03-15)
PROC: 0DQ80ZZ Repair Small Intestine, Open Approach (ICD-10-PCS; 2023-03-15)
PROC: 0D1N0ZP Bypass Sigmoid Colon to Rectum, Open Approach (ICD-10-PCS; 2023-03-15)
PROC: 0WUF0JZ Supplement Abdominal Wall with Synthetic Substitute, Open Approach (ICD-10-PCS; 2023-03-15)
PROC: 3E0M05Z Introduction of Adhesion Barrier into Peritoneal Cavity, Open Approach (ICD-10-PCS; 2023-03-15)
DX: K91.89 Other postprocedural complications and disorders of digestive system (principal); K56.2 Volvulus; K43.0 Incisional hernia with obstruction, without gangrene; J44.9 Chronic obstructive pulmonary disease, unspecified; F32.A Depression, unspecified; K21.9 Gastro-esophageal reflux disease without esophagitis; I25.10 Atherosclerotic heart disease of native coronary artery without angina pectoris; I10 Essential (primary) hypertension; E03.9 Hypothyroidism, unspecified; E11.9 Type 2 diabetes mellitus without complications; I25.2 Old myocardial infarction; Z95.5 Presence of coronary angioplasty implant and graft; Z98.890 Other specified postprocedural states
CPT/HCPCS: 36415; 73630-26-RT; 73630-RT; 74240; 74240-26; 80053; 82728; 82947; 83036; 83735; 83880; 84100; 84443; 85027; 88302; 88307; 94640; A9270-GY; C9113; J0131; J0171; J0330; J0694; J1100; J1170; J1644; J1815; J1815-GY; J2020; J2185; J2405; J2704; J2710; J2795; J2916; J3010; J3411; J3420; J3475; J3490; J7120; J7121; J7620; Q9967; U0002

== ENCOUNTER 2023-09-20 19:21 | Emergency (ER) | payer MEDICAID ==
[2023-09-20] MEDS ORDERED: Sodium Chloride 0.9% 80 ML IV ONE (20:56)
[2023-09-20] MEDS ORDERED: Iopamidol 612 MG/ML 100 ML Bottle IV ONE (20:56)
[2023-09-20] MEDS ORDERED: Sodium Chloride 0.9% 1,000 ML IV SCH (21:00)
[2023-09-20 21:17] LABS: BASOPHILS ABSOLUTE AUTO 0.03 K/uL (0.00-0.10); BASOPHILS PERCENT AUTO 0.7 % (0.1-1.3); EOSINOPHILS ABSOLUTE AUTO 0.04 K/uL (0.00-0.40); EOSINOPHILS PERCENT AUTO 0.9 % (0.0-5.4); HEMOGLOBIN 9.7 g/dL (12.9-16.9); IMMATURE GRAN PERCENT AUTO 0.2 % (0.0-0.7); LYMPHOCYTES ABSOLUTE AUTO 1.58 K/uL (0.8-3.3); LYMPHOCYTES PERCENT AUTO 34.7 % (11.4-47.7); MEAN CORPUSCULAR HEMOGLOBIN 32.9 pg (31.6-35.5); MEAN CORPUSCULAR HGB CONC 33.4 g/dL (31.6-35.5); MEAN CORPUSCULAR VOLUME 98.3 fL (81.4-99.0); MONOCYTES ABSOLUTE AUTO 0.29 K/uL (0.20-0.90); MONOCYTES PERCENT AUTO 6.4 % (3.3-12.6); NEUTROPHILS PERCENT AUTO 57.1 % (40.0-78.1); PLATELET COUNT,PLT 204 K/uL (130-375); RED BLOOD CELL COUNT 2.95 M/uL (4.14-5.76); WHITE BLOOD CELL COUNT,WBC 4.6 K/uL (3.2-11.0)
[2023-09-20 21:23] LABS: IMMATURE GRAN ABSOLUTE AUTO 0.01 K/uL (0.00-0.23)
[2023-09-20] MEDS: Sodium Chloride 0.9% 10 ML Syringe FLUSH ONE ×2 (21:25→21:49)
[2023-09-20 21:29] LABS: ANION GAP 9.7 mmol/L (5.0-14.0); CALCIUM 7.7 mg/dL (8.5-10.1); CREATININE 1.1 mg/dL (0.8-1.3); EST CRCL DRUG DOSING (CG) 65.53 mL/min; POTASSIUM,K 3.7 mmol/L (3.6-5.2)
[2023-09-20] MEDS ORDERED: Ondansetron 4 MG/2 ML SDV IVPUSH ONE (21:31)
[2023-09-20] MEDS ORDERED: HYDROmorphone 0.5 MG/0.5 ML Syringe IVPUSH ONE (21:31)
[2023-09-20 23:27] VITALS: BP 173/85; PULSE 70
== END 2023-09-21 00:44 | disposition home or self-care (01) ==
LOC: JP.ED 19:21
DX: K52.9 Noninfective gastroenteritis and colitis, unspecified (principal); E86.0 Dehydration; D64.9 Anemia, unspecified; E83.51 Hypocalcemia; E11.21 Type 2 diabetes mellitus with diabetic nephropathy; I25.10 Atherosclerotic heart disease of native coronary artery without angina pectoris; I10 Essential (primary) hypertension; K21.9 Gastro-esophageal reflux disease without esophagitis; E03.9 Hypothyroidism, unspecified; R63.4 Abnormal weight loss; Z68.20 Body mass index [BMI] 20.0-20.9, adult; Z98.84 Bariatric surgery status; Z95.5 Presence of coronary angioplasty implant and graft; Z86.16 Personal history of COVID-19; Z79.4 Long term (current) use of insulin; Z79.82 Long term (current) use of aspirin; Z79.899 Other long term (current) drug therapy
CPT/HCPCS: 36415; 74177; 80048; 85025; 86140; 96361; 96374; 96375; 99284; J1170; J2405; J3490; J7030; Q9967

== ENCOUNTER 2023-10-29 09:45 | Inpatient (IN) | payer MEDICAID ==
[2023-10-29] MEDS: Lactated Ringers 1,000 ML IV ONE (10:31)
[2023-10-29] MEDS: Cyanocobalamin (Vitamin B12) 1,000 MCG/ML SDV IM ONE (11:11)
[2023-10-29] MEDS: MVI, Adult with Vitamin K 10 ML, Thiamine 200 MG, Chromium/Copper/Mang/Selen/Zn 1 ML in... IV ONE (11:25)
[2023-10-29] MEDS ORDERED: fentaNYL 100 MCG/2 ML SDV ONE (11:57)
[2023-10-29] MEDS ORDERED: Propofol 200 MG/20 ML SDV ONE (11:57)
[2023-10-29] MEDS: Iopamidol 612 MG/ML 50 ML SDV PO ONE (13:40)
[2023-10-29] MEDS: Sodium Chloride 0.9% 80 ML IV SCH (13:42)
[2023-10-29] MEDS: Iopamidol 612 MG/ML 100 ML Bottle IV ONE (13:42)
[2023-10-29] MEDS ORDERED: Naloxone 0.4 MG/ML SDV IVPUSH PRN (14:50)
[2023-10-29] MEDS: fentaNYL 50 MCG/ML SDV IVPUSH ONE (15:10)
[2023-10-29] MEDS: Ondansetron 4 MG/2 ML SDV IVPUSH ONE (15:10)
[2023-10-29] MEDS ORDERED: Albuterol 6.7 GM Inhaler INH PRN (16:51)
[2023-10-29] MEDS ORDERED: Loratadine 10 MG Tab PO PRN (16:51)
[2023-10-29] MEDS ORDERED: Dicyclomine 10 MG Cap PO PRN (16:51)
[2023-10-29 17:50] LABS: BASOPHILS ABSOLUTE AUTO 0.03 K/uL (0.00-0.10); BASOPHILS PERCENT AUTO 0.5 % (0.1-1.3); EOSINOPHILS ABSOLUTE AUTO 0.06 K/uL (0.00-0.40); HEMATOCRIT 35.3 % (38.4-49.7); HEMOGLOBIN 12.1 g/dL (12.9-16.9); IMMATURE GRAN PERCENT AUTO 0.2 % (0.0-0.7); LYMPHOCYTES ABSOLUTE AUTO 1.07 K/uL (0.8-3.3); LYMPHOCYTES PERCENT AUTO 17.9 % (11.4-47.7); MEAN CORPUSCULAR HEMOGLOBIN 34.7 pg (31.6-35.5); MEAN CORPUSCULAR HGB CONC 34.3 g/dL (31.6-35.5); MEAN CORPUSCULAR VOLUME 101.1 fL (81.4-99.0); MONOCYTES ABSOLUTE AUTO 0.31 K/uL (0.20-0.90); MONOCYTES PERCENT AUTO 5.2 % (3.3-12.6); NEUTROPHILS ABSOLUTE AUTO 4.51 K/uL (1.0-7.6); NEUTROPHILS PERCENT AUTO 75.2 % (40.0-78.1); PLATELET COUNT,PLT 172 K/uL (130-375); RED BLOOD CELL COUNT 3.49 M/uL (4.14-5.76)
[2023-10-29 17:56] LABS: IMMATURE GRAN ABSOLUTE AUTO 0.01 K/uL (0.00-0.23)
[2023-10-29] MEDS: Scopalamine 1mg/3day Transdermal Patch TRDERM SCH (18:01)
[2023-10-29] MEDS ORDERED: fentaNYL 50 MCG/ML SDV IVPUSH PRN (18:02)
[2023-10-29] MEDS: Amylase/Lipase/Protease 12,000 Unit Cap.CR PO SCH (18:02)
[2023-10-29] MEDS: SCOPOLAMINE PATCH CHECK TOP SCH (18:02)
[2023-10-29 18:11] LABS: INR 1.1; PROTHROMBIN TIME 11.2 sec (9.2-10.6)
[2023-10-29 18:12] LABS: A/G RATIO 0.9 (1.2-2.2); ALANINE AMINOTRANSFERASE,ALT 58 U/L (12-78); ALBUMIN 2.3 g/dL (3.4-5.0); ALKALINE PHOSPHATASE 144 U/L (46-116); ASPARTATE AMNIOTRANSFERASE,AST 48 U/L (15-37); BLOOD UREA NITROGEN,BUN 18 mg/dL (7-18); CALCIUM 7.6 mg/dL (8.5-10.1); CARBON DIOXIDE,CO2 31 mmol/L (21-32); CHLORIDE,CL 106 mmol/L (100-108); EST CRCL DRUG DOSING (CG) 79.57 mL/min; ESTIMATED GFR 85 mL/min (>60); GLUCOSE RANDOM 84 mg/dL (74-106); MAGNESIUM 1.8 mg/dL (1.8-2.4); PHOSPHORUS 3.2 mg/dL (2.5-4.9); POTASSIUM,K 3.4 mmol/L (3.6-5.2); SODIUM,NA 141 mmol/L (140-148)
[2023-10-29 18:13] LABS: ANION GAP 7.4 mmol/L (5.0-14.0)
[2023-10-29 18:37] LABS: FERRITIN 219 ng/ml (8-388); IRON,FE 72 ug/dL (65-175); PERCENT FE SATURATION 78 % (20-55); TOTAL IRON BINDING CAPACITY 92 ug/dl (250-450)
[2023-10-29] MEDS: Acetaminophen/HYDROcodone 325-5 MG Tab PO PRN (19:12)
[2023-10-29] MEDS: Carvedilol 3.125 MG Tab PO SCH (20:43)
[2023-10-29] MEDS: Mirtazapine 15 MG Tab PO SCH (20:44)
[2023-10-29] MEDS: Multivitamins with Iron/Calcium/Folic Acid/Minerals Tab PO SCH (20:44)
[2023-10-29] MEDS: amLODIPine 5 MG Tab PO SCH (20:45)
[2023-10-29] MEDS: Citalopram 20 MG Tab PO SCH (20:45)
[2023-10-29] MEDS ORDERED: Citalopram 20 MG Tab PO SCH (21:00)
[2023-10-29] MEDS: Insulin Lispro 100 Unit/ML 3 ML KwikPen SUBCUT SCH (21:15)
[2023-10-29] MEDS: Melatonin 3 MG Tab PO SCH (21:39)
[2023-10-29] MEDS: Potassium Chloride 10 MEQ in Premix Bag 1 BAG IV SCH (23:33)
[2023-10-30] MEDS: Folic Acid 1 MG in Sodium Chloride 0.9% 50 ML IV SCH (00:33)
[2023-10-30] MEDS: Thiamine 100 MG in Sodium Chloride 0.9% 100 ML IV SCH (02:36)
[2023-10-30] MEDS ORDERED: Levothyroxine 50 MCG Tab PO SCH (07:30)
[2023-10-30] MEDS: Ondansetron 4 MG/2 ML SDV IVPUSH PRN (07:45)
[2023-10-30 08:19] LABS: CORONAVIRUS COVID-19 NAA NEGATIVE (NEGATIVE); INFLUENZA A NAA NEGATIVE (NEGATIVE); INFLUENZA B NAA NEGATIVE (NEGATIVE); RESPIRATORY SYNCYTIAL VIR NAA NEGATIVE (NEGATIVE)
[2023-10-30] MEDS ORDERED: Metoprolol Succinate 25 MG Tab.ER PO SCH (09:00)
[2023-10-30] MEDS: Zinc Sulfate 220 MG Cap PO SCH (09:51)
[2023-10-30] MEDS: Lisinopril 10 MG Tab PO SCH (09:51)
[2023-10-30] MEDS: Tamsulosin 0.4 MG Cap.ER PO SCH (09:52)
[2023-10-30] MEDS: Isosorbide Mononitrate 30 MG Tab.ER PO SCH (09:52)
[2023-10-30] MEDS: Ascorbic Acid 500 MG Tab PO SCH (09:52)
[2023-10-30] MEDS: Cholecalciferol (Vitamin D3) 25 MCG Tab PO SCH (09:53)
[2023-10-30] MEDS: Pantoprazole 40 MG Vial IVPUSH SCH (09:59)
[2023-10-30] MEDS: SELENIUM 100 MCG PO SCH (10:04)
[2023-10-30] MEDS ORDERED: Ondansetron 4 MG/2 ML SDV IVPUSH PRN (15:05)
[2023-10-30] MEDS: 1: AA 5%/Calcium/D15W/Lytes 1,000 ML with MVI, Adult with Vitamin K 10 ML, Zinc/Copper/M IV SCH (15:36)
[2023-10-30] MEDS: Fat Emulsion 100 ML IV SCH (15:36)
[2023-10-30] MEDS ORDERED: Thiamine 100 MG in Sodium Chloride 0.9% 100 ML IV SCH (16:00)
[2023-10-30] MEDS ORDERED: Folic Acid 1 MG in Sodium Chloride 0.9% 50 ML IV SCH (16:00)
[2023-10-30] MEDS: Citalopram 10 MG Tab PO SCH (21:27)
[2023-10-31] MEDS: Ondansetron 4 MG Tab.DIS PO PRN (05:19)
[2023-10-31 05:55] LABS: HEMATOCRIT 28.7 % (38.4-49.7); HEMOGLOBIN 9.8 g/dL (12.9-16.9); MEAN CORPUSCULAR HEMOGLOBIN 34.6 pg (31.6-35.5); MEAN CORPUSCULAR HGB CONC 34.1 g/dL (31.6-35.5); MEAN CORPUSCULAR VOLUME 101.4 fL (81.4-99.0); RED BLOOD CELL COUNT 2.83 M/uL (4.14-5.76); WHITE BLOOD CELL COUNT,WBC 4.8 K/uL (3.2-11.0)
[2023-10-31 06:09] LABS: CREATININE 0.9 mg/dL (0.8-1.3); EST CRCL DRUG DOSING (CG) 88.41 mL/min; MAGNESIUM 1.6 mg/dL (1.8-2.4); PHOSPHORUS 3.3 mg/dL (2.5-4.9); POTASSIUM,K 3.9 mmol/L (3.6-5.2)
[2023-10-31 06:17] LABS: ANION GAP 7.9 mmol/L (5.0-14.0)
[2023-10-31] MEDS: Aspirin 81 MG Tab.Chew PO SCH (08:34)
[2023-10-31] MEDS: Magnesium Sulfate/Water 2 GM in Premix Bag 1 BAG IV ONE (08:37)
[2023-10-31] MEDS ORDERED: Central Total Parenteral Nutrition Bag SCH (12:00)
[2023-10-31] MEDS: Acetaminophen 325 MG Tab PO PRN (12:10)
[2023-10-31 15:13] LABS: HEMATOCRIT 25.1 % (38.4-49.7); HEMOGLOBIN 8.7 g/dL (12.9-16.9); MEAN CORPUSCULAR HEMOGLOBIN 35.1 pg (31.6-35.5); MEAN CORPUSCULAR HGB CONC 34.7 g/dL (31.6-35.5); MEAN CORPUSCULAR VOLUME 101.2 fL (81.4-99.0); RED BLOOD CELL COUNT 2.48 M/uL (4.14-5.76); WHITE BLOOD CELL COUNT,WBC 4.4 K/uL (3.2-11.0)
[2023-10-31 20:34] LABS: APPEARANCE,URINE SLIGHTLY CLOUDY (CLEAR); BILIRUBIN,URINE NEGATIVE (NEGATIVE); COLOR,URINE YELLOW (YELLOW); GLUCOSE,URINE NEGATIVE (NEGATIVE); KETONES,URINE NEGATIVE (NEGATIVE); LEUKOCYTE ESTERASE,URINE NEGATIVE (NEGATIVE); NITRITE,URINE NEGATIVE (NEGATIVE); OCCULT BLOOD,URINE LARGE (NEGATIVE); PROTEIN,URINE NEGATIVE (NEGATIVE); UROBILINOGEN,URINE 0.2 EU/dL (0.2-1.0)
[2023-10-31 20:41] LABS: AMORPHOUS SEDIMENT,URINE NOT SEEN; BACTERIA,URINE FEW; EPITHELIAL CELLS,URINE RARE; MUCUS,URINE RARE; RBC,URINE 50-75 (0-5); WBC,URINE 0-5 (0-5)
[2023-10-31 20:42] LABS: PREALBUMIN 11.8 mg/dL (20.0-40.0)
[2023-10-31 22:57] LABS: COPPER,SERUM/PLASMA 74.2 ug/dL (70.0-140.0); SELENIUM, SERUM/PLASMA 57.6 ug/L (23.0-190.0); ZINC,SERUM/PLASMA 47.3 ug/dL (60.0-120.0)
[2023-11-01 06:03] LABS: ANION GAP 3.5 mmol/L (5.0-14.0); CREATININE 0.7 mg/dL (0.8-1.3); EST CRCL DRUG DOSING (CG) 113.67 mL/min; MAGNESIUM 1.8 mg/dL (1.8-2.4); PHOSPHORUS 3.3 mg/dL (2.5-4.9); POTASSIUM,K 4.1 mmol/L (3.6-5.2)
[2023-11-01 06:04] LABS: CALCIUM 6.9 mg/dL (8.5-10.1)
[2023-11-01] MEDS: Calcium Gluconate 2 GM in Sodium Chloride 0.9% 100 ML IV ONE (06:40)
[2023-11-01 08:02] LABS: HEMATOCRIT 27.2 % (38.4-49.7); HEMOGLOBIN 9.4 g/dL (12.9-16.9); MEAN CORPUSCULAR HEMOGLOBIN 34.8 pg (31.6-35.5); MEAN CORPUSCULAR HGB CONC 34.6 g/dL (31.6-35.5); MEAN CORPUSCULAR VOLUME 100.7 fL (81.4-99.0); RED BLOOD CELL COUNT 2.7 M/uL (4.14-5.76); WHITE BLOOD CELL COUNT,WBC 3.6 K/uL (3.2-11.0)
[2023-11-01] MEDS: Pantoprazole 40 MG Tab.CR PO SCH (08:09)
[2023-11-01 09:41] LABS: VITAMIN D,1,25-DIHYDROXY 74.8 pg/mL (19.9-79.3)
[2023-11-01] MEDS: Scopalamine 1mg/3day Transdermal Patch TRDERM SCH (10:36)
[2023-11-01] MEDS ORDERED: Central Total Parenteral Nutrition Bag SCH (12:30)
[2023-11-01] MEDS: 1: AA 5%/Calcium/D15W/Lytes 1,000 ML with MVI, Adult with Vitamin K 10 ML, Zinc/Copper/M IV SCH (14:30)
[2023-11-02 05:55] LABS: HEMATOCRIT 29.5 % (38.4-49.7); HEMOGLOBIN 10.1 g/dL (12.9-16.9); MEAN CORPUSCULAR HEMOGLOBIN 34.6 pg (31.6-35.5); MEAN CORPUSCULAR HGB CONC 34.2 g/dL (31.6-35.5); RED BLOOD CELL COUNT 2.92 M/uL (4.14-5.76)
[2023-11-02 06:22] LABS: A/G RATIO 0.7 (1.2-2.2); ALANINE AMINOTRANSFERASE,ALT 33 U/L (12-78); ALBUMIN 1.7 g/dL (3.4-5.0); ALKALINE PHOSPHATASE 101 U/L (46-116); ANION GAP 2.6 mmol/L (5.0-14.0); ASPARTATE AMNIOTRANSFERASE,AST 22 U/L (15-37); BILIRUBIN TOTAL 0.3 mg/dL (0.2-1.0); BLOOD UREA NITROGEN,BUN 19 mg/dL (7-18); CALCIUM 7.2 mg/dL (8.5-10.1); CARBON DIOXIDE,CO2 31 mmol/L (21-32); CHLORIDE,CL 106 mmol/L (100-108); CREATININE 0.7 mg/dL (0.8-1.3); EST CRCL DRUG DOSING (CG) 114.57 mL/min; ESTIMATED GFR 104 mL/min (>60); GLUCOSE RANDOM 123 mg/dL (74-106); POTASSIUM,K 4.5 mmol/L (3.6-5.2); PROTEIN TOTAL,TP 4.3 g/dL (6.4-8.2); SODIUM,NA 140 mmol/L (140-148)
[2023-11-02 06:23] LABS: MAGNESIUM 1.7 mg/dL (1.8-2.4); PHOSPHORUS 3.6 mg/dL (2.5-4.9)
[2023-11-02] MEDS: Magnesium Sulfate/Water 2 GM in Premix Bag 1 BAG IV ONE (08:39)
[2023-11-02] MEDS: Metoclopramide 10 MG/2 ML SDV IV SCH (11:48)
[2023-11-02] MEDS ORDERED: Central Total Parenteral Nutrition Bag SCH (12:30)
[2023-11-02 14:26] LABS: VITAMIN B6 PYRIDOXAL 5-PHOSPH 18.4 nmol/L (20.0-125.0)
[2023-11-02 16:11] LABS: VITAMIN A (RETINOL) 0.21 mg/L (0.30-1.20); VITAMIN A (RETINYL PALMITATE) 0.08 mg/L (0.00-0.10); VITAMIN E (ALPHA-TOCOPHEROL) 5.6 mg/L (5.5-18.0); VITAMIN E (GAMMA-TOCOPHEROL) 0.6 mg/L (0.0-6.0)
[2023-11-03 00:39] LABS: VITAMIN K1 3.57 nmol/L (0.22-4.88)
[2023-11-03 04:42] LABS: HEMATOCRIT 24.9 % (38.4-49.7); HEMOGLOBIN 8.6 g/dL (12.9-16.9); MEAN CORPUSCULAR HEMOGLOBIN 35.1 pg (31.6-35.5); MEAN CORPUSCULAR HGB CONC 34.5 g/dL (31.6-35.5); MEAN CORPUSCULAR VOLUME 101.6 fL (81.4-99.0); RED BLOOD CELL COUNT 2.45 M/uL (4.14-5.76); WHITE BLOOD CELL COUNT,WBC 3.3 K/uL (3.2-11.0)
[2023-11-03 05:00] LABS: ANION GAP 1.9 mmol/L (5.0-14.0); CREATININE 0.6 mg/dL (0.8-1.3); EST CRCL DRUG DOSING (CG) 133.67 mL/min; MAGNESIUM 1.8 mg/dL (1.8-2.4); PHOSPHORUS 3.6 mg/dL (2.5-4.9); POTASSIUM,K 4.6 mmol/L (3.6-5.2)
[2023-11-03] MEDS ORDERED: Central Total Parenteral Nutrition Bag SCH (11:15)
[2023-11-03 20:21] LABS: VITAMIN C, PLASMA 48 umol/L (23-114)
[2023-11-04 04:33] LABS: HEMATOCRIT 23.2 % (38.4-49.7); HEMOGLOBIN 7.9 g/dL (12.9-16.9); MEAN CORPUSCULAR HEMOGLOBIN 34.8 pg (31.6-35.5); MEAN CORPUSCULAR HGB CONC 34.1 g/dL (31.6-35.5); MEAN CORPUSCULAR VOLUME 102.2 fL (81.4-99.0); RED BLOOD CELL COUNT 2.27 M/uL (4.14-5.76); WHITE BLOOD CELL COUNT,WBC 3.2 K/uL (3.2-11.0)
[2023-11-04 04:52] LABS: CALCIUM 7.2 mg/dL (8.5-10.1); CREATININE 0.7 mg/dL (0.8-1.3); EST CRCL DRUG DOSING (CG) 113.79 mL/min; MAGNESIUM 1.6 mg/dL (1.8-2.4); POTASSIUM,K 4.3 mmol/L (3.6-5.2)
[2023-11-04] MEDS: Magnesium Sulfate/Water 2 GM in Premix Bag 1 BAG IV SCH (08:51)
[2023-11-04 09:47] LABS: VITAMIN B1,WHOLE BLOOD 202 nmol/L (70-180)
[2023-11-04] MEDS ORDERED: Central Total Parenteral Nutrition Bag SCH (11:45)
[2023-11-05 04:39] LABS: HEMATOCRIT 22.5 % (38.4-49.7); HEMOGLOBIN 7.5 g/dL (12.9-16.9); MEAN CORPUSCULAR HEMOGLOBIN 34.2 pg (31.6-35.5); MEAN CORPUSCULAR HGB CONC 33.3 g/dL (31.6-35.5); MEAN CORPUSCULAR VOLUME 102.7 fL (81.4-99.0); RED BLOOD CELL COUNT 2.19 M/uL (4.14-5.76); WHITE BLOOD CELL COUNT,WBC 2.7 K/uL (3.2-11.0)
[2023-11-05 05:00] LABS: CALCIUM 7.1 mg/dL (8.5-10.1); CREATININE 0.7 mg/dL (0.8-1.3); EST CRCL DRUG DOSING (CG) 112.96 mL/min; POTASSIUM,K 4.6 mmol/L (3.6-5.2)
[2023-11-05 05:07] LABS: ANION GAP 6.6 mmol/L (5.0-14.0)
[2023-11-05] MEDS: oxyCODONE 5 MG Tab PO PRN (08:38)
[2023-11-05] MEDS: Acetaminophen 500 MG Tab PO SCH (08:43)
[2023-11-05] MEDS ORDERED: Central Total Parenteral Nutrition Bag IV SCH (11:30)
[2023-11-06 05:56] LABS: HEMATOCRIT 21.7 % (38.4-49.7); HEMOGLOBIN 7.2 g/dL (12.9-16.9); MEAN CORPUSCULAR HEMOGLOBIN 34.6 pg (31.6-35.5); MEAN CORPUSCULAR HGB CONC 33.2 g/dL (31.6-35.5); MEAN CORPUSCULAR VOLUME 104.3 fL (81.4-99.0); RED BLOOD CELL COUNT 2.08 M/uL (4.14-5.76); WHITE BLOOD CELL COUNT,WBC 2.7 K/uL (3.2-11.0)
[2023-11-06 06:20] LABS: NICOTINAMIDE 18 ng/mL; NICOTINIC ACID None Det ng/mL
[2023-11-06 06:23] LABS: A/G RATIO 0.7 (1.2-2.2); ALBUMIN 1.7 g/dL (3.4-5.0); BILIRUBIN DIRECT 0.12 mg/dL (0.0-0.2); BILIRUBIN INDIRECT 0.18; BILIRUBIN TOTAL 0.3 mg/dL (0.2-1.0); CALCIUM 7.3 mg/dL (8.5-10.1); CREATININE 0.7 mg/dL (0.8-1.3); EST CRCL DRUG DOSING (CG) 110.74 mL/min; MAGNESIUM 1.8 mg/dL (1.8-2.4); PHOSPHORUS 3.9 mg/dL (2.5-4.9); POTASSIUM,K 4.7 mmol/L (3.6-5.2); PROTEIN TOTAL,TP 4.1 g/dL (6.4-8.2)
[2023-11-06 06:24] LABS: ANION GAP 6.7 mmol/L (5.0-14.0)
[2023-11-06 06:35] LABS: CHOLESTEROL HDL 32 mg/dL (40-60); CHOLESTEROL LDL DIRECT 61 mg/dL (0-100); CHOLESTEROL TOTAL 105 mg/dL (0-200); TRIGLYCERIDES 55 mg/dL (15-150)
[2023-11-06] MEDS ORDERED: Central Total Parenteral Nutrition Bag IV SCH (10:15)
[2023-11-07 05:48] LABS: HEMATOCRIT 22.2 % (38.4-49.7); HEMOGLOBIN 7.3 g/dL (12.9-16.9); MEAN CORPUSCULAR HEMOGLOBIN 34.4 pg (31.6-35.5); MEAN CORPUSCULAR HGB CONC 32.9 g/dL (31.6-35.5); MEAN CORPUSCULAR VOLUME 104.7 fL (81.4-99.0); RED BLOOD CELL COUNT 2.12 M/uL (4.14-5.76); WHITE BLOOD CELL COUNT,WBC 2.5 K/uL (3.2-11.0)
[2023-11-07 06:01] LABS: ANION GAP 5.4 mmol/L (5.0-14.0); CALCIUM 7.5 mg/dL (8.5-10.1); CREATININE 0.7 mg/dL (0.8-1.3); EST CRCL DRUG DOSING (CG) 109.69 mL/min; MAGNESIUM 1.7 mg/dL (1.8-2.4); POTASSIUM,K 4.8 mmol/L (3.6-5.2)
[2023-11-07 06:02] LABS: INR 1.1
[2023-11-07] MEDS: Magnesium Sulfate/Water 2 GM in Premix Bag 1 BAG IV ONE (08:41)
[2023-11-07] MEDS ORDERED: Central Total Parenteral Nutrition Bag IV SCH (11:45)
[2023-11-07] MEDS: Metoclopramide 10 MG Tab PO SCH (12:05)
[2023-11-07 23:25] LABS: PREALBUMIN 13.8 mg/dL (20.0-40.0)
[2023-11-08 05:14] LABS: HEMATOCRIT 21.2 % (38.4-49.7); MEAN CORPUSCULAR HEMOGLOBIN 34.5 pg (31.6-35.5); MEAN CORPUSCULAR VOLUME 104.4 fL (81.4-99.0); RED BLOOD CELL COUNT 2.03 M/uL (4.14-5.76); WHITE BLOOD CELL COUNT,WBC 2.4 K/uL (3.2-11.0)
[2023-11-08 05:36] LABS: CALCIUM 7.6 mg/dL (8.5-10.1); CREATININE 0.7 mg/dL (0.8-1.3); EST CRCL DRUG DOSING (CG) 107.69 mL/min; MAGNESIUM 1.9 mg/dL (1.8-2.4); PHOSPHORUS 4.1 mg/dL (2.5-4.9)
[2023-11-08] MEDS: Mineral Oil/Petrolatum/Phenylephrine/Shark Liver Oil Oint 57 GM Tube RECTAL PRN (16:30)
[2023-11-08] MEDS: Venlafaxine 75 MG Cap.ER PO SCH (16:30)
[2023-11-08] MEDS: MVI, Adult with Vitamin K 10 ML, Zinc/Copper/Manganese/Selenium 1 ML in AA 5%/Calcium/D... IV SCH (18:28)
[2023-11-08] MEDS: Fat Emulsion 100 ML IV SCH (18:29)
[2023-11-09] MEDS ORDERED: Magnesium Sulfate/Water 2 GM in Premix Bag 1 BAG IV ONE (06:49)
[2023-11-09] MEDS: Magnesium Sulfate/Water 2 GM in Premix Bag 1 BAG IV ONE (08:25)
[2023-11-09 08:58] LABS: HEMATOCRIT 25.7 % (38.4-49.7)
[2023-11-09 09:05] LABS: HEMOGLOBIN 8.7 g/dL (12.9-16.9)
[2023-11-09 09:47] LABS: BASOPHILS ABSOLUTE AUTO 0.04 K/uL (0.00-0.10); BASOPHILS PERCENT AUTO 0.9 % (0.1-1.3); EOSINOPHILS ABSOLUTE AUTO 0.16 K/uL (0.00-0.40); EOSINOPHILS PERCENT AUTO 3.6 % (0.0-5.4); HEMATOCRIT 26.1 % (38.4-49.7); HEMOGLOBIN 8.7 g/dL (12.9-16.9); IMMATURE GRAN PERCENT AUTO 0.2 % (0.0-0.7); LYMPHOCYTES ABSOLUTE AUTO 0.84 K/uL (0.8-3.3); LYMPHOCYTES PERCENT AUTO 19.1 % (11.4-47.7); MEAN CORPUSCULAR HEMOGLOBIN 34.9 pg (31.6-35.5); MEAN CORPUSCULAR HGB CONC 33.3 g/dL (31.6-35.5); MEAN CORPUSCULAR VOLUME 104.8 fL (81.4-99.0); MONOCYTES ABSOLUTE AUTO 0.41 K/uL (0.20-0.90); MONOCYTES PERCENT AUTO 9.3 % (3.3-12.6); NEUTROPHILS ABSOLUTE AUTO 2.93 K/uL (1.0-7.6); NEUTROPHILS PERCENT AUTO 66.9 % (40.0-78.1); PLATELET COUNT,PLT 212 K/uL (130-375); RED BLOOD CELL COUNT 2.49 M/uL (4.14-5.76); WHITE BLOOD CELL COUNT,WBC 4.4 K/uL (3.2-11.0)
[2023-11-09 09:50] LABS: IMMATURE GRAN ABSOLUTE AUTO 0.01 K/uL (0.00-0.23)
[2023-11-09 10:14] LABS: A/G RATIO 0.9 (1.2-2.2); ALANINE AMINOTRANSFERASE,ALT 74 U/L (12-78); ALBUMIN 2.5 g/dL (3.4-5.0); ALKALINE PHOSPHATASE 127 U/L (46-116); ASPARTATE AMNIOTRANSFERASE,AST 42 U/L (15-37); BILIRUBIN TOTAL 0.4 mg/dL (0.2-1.0); BLOOD UREA NITROGEN,BUN 28 mg/dL (7-18); CALCIUM 7.7 mg/dL (8.5-10.1); CARBON DIOXIDE,CO2 26 mmol/L (21-32); CHLORIDE,CL 103 mmol/L (100-108); CREATININE 0.8 mg/dL (0.8-1.3); EST CRCL DRUG DOSING (CG) 94.38 mL/min; ESTIMATED GFR 99 mL/min (>60); GLUCOSE RANDOM 221 mg/dL (74-106); PHOSPHORUS 4.6 mg/dL (2.5-4.9); POTASSIUM,K 5.2 mmol/L (3.6-5.2); PROTEIN TOTAL,TP 5.2 g/dL (6.4-8.2); SODIUM,NA 136 mmol/L (140-148)
[2023-11-09 10:16] LABS: ANION GAP 12.2 mmol/L (5.0-14.0)
[2023-11-10 06:16] LABS: CALCIUM 7.6 mg/dL (8.5-10.1); CREATININE 0.7 mg/dL (0.8-1.3); EST CRCL DRUG DOSING (CG) 104.92 mL/min; MAGNESIUM 1.9 mg/dL (1.8-2.4); PHOSPHORUS 4.3 mg/dL (2.5-4.9); POTASSIUM,K 4.5 mmol/L (3.6-5.2)
[2023-11-10 06:18] LABS: ANION GAP 8.5 mmol/L (5.0-14.0)
[2023-11-10 08:37] LABS: BASOPHILS PERCENT AUTO 0.8 % (0.1-1.3); EOSINOPHILS ABSOLUTE AUTO 0.14 K/uL (0.00-0.40); EOSINOPHILS PERCENT AUTO 5.4 % (0.0-5.4); HEMATOCRIT 22.1 % (38.4-49.7); HEMOGLOBIN 7.4 g/dL (12.9-16.9); LYMPHOCYTES ABSOLUTE AUTO 0.83 K/uL (0.8-3.3); LYMPHOCYTES PERCENT AUTO 32.3 % (11.4-47.7); MEAN CORPUSCULAR HEMOGLOBIN 34.7 pg (31.6-35.5); MEAN CORPUSCULAR HGB CONC 33.5 g/dL (31.6-35.5); MEAN CORPUSCULAR VOLUME 103.8 fL (81.4-99.0); MONOCYTES ABSOLUTE AUTO 0.35 K/uL (0.20-0.90); MONOCYTES PERCENT AUTO 13.6 % (3.3-12.6); NEUTROPHILS ABSOLUTE AUTO 1.23 K/uL (1.0-7.6); NEUTROPHILS PERCENT AUTO 47.9 % (40.0-78.1); PLATELET COUNT,PLT 196 K/uL (130-375); RED BLOOD CELL COUNT 2.13 M/uL (4.14-5.76); WHITE BLOOD CELL COUNT,WBC 2.6 K/uL (3.2-11.0)
[2023-11-10 08:38] LABS: BASOPHILS ABSOLUTE AUTO 0.02 K/uL (0.00-0.10)
[2023-11-10] MEDS ORDERED: Central Total Parenteral Nutrition Bag SCH (12:00)
[2023-11-11 05:15] LABS: BASOPHILS PERCENT AUTO 0.8 % (0.1-1.3); EOSINOPHILS ABSOLUTE AUTO 0.09 K/uL (0.00-0.40); EOSINOPHILS PERCENT AUTO 3.8 % (0.0-5.4); HEMATOCRIT 22.9 % (38.4-49.7); HEMOGLOBIN 7.6 g/dL (12.9-16.9); IMMATURE GRAN PERCENT AUTO 0.4 % (0.0-0.7); LYMPHOCYTES ABSOLUTE AUTO 0.93 K/uL (0.8-3.3); LYMPHOCYTES PERCENT AUTO 38.8 % (11.4-47.7); MEAN CORPUSCULAR HEMOGLOBIN 34.9 pg (31.6-35.5); MEAN CORPUSCULAR HGB CONC 33.2 g/dL (31.6-35.5); MONOCYTES ABSOLUTE AUTO 0.32 K/uL (0.20-0.90); MONOCYTES PERCENT AUTO 13.3 % (3.3-12.6); NEUTROPHILS ABSOLUTE AUTO 1.03 K/uL (1.0-7.6); NEUTROPHILS PERCENT AUTO 42.9 % (40.0-78.1); PLATELET COUNT,PLT 199 K/uL (130-375); RED BLOOD CELL COUNT 2.18 M/uL (4.14-5.76); WHITE BLOOD CELL COUNT,WBC 2.4 K/uL (3.2-11.0)
[2023-11-11 05:28] LABS: BASOPHILS ABSOLUTE AUTO 0.02 K/uL (0.00-0.10); IMMATURE GRAN ABSOLUTE AUTO 0.01 K/uL (0.00-0.23)
[2023-11-11 05:30] LABS: CALCIUM 7.5 mg/dL (8.5-10.1); CREATININE 0.7 mg/dL (0.8-1.3); EST CRCL DRUG DOSING (CG) 105.2 mL/min; MAGNESIUM 1.8 mg/dL (1.8-2.4); PHOSPHORUS 4.3 mg/dL (2.5-4.9); POTASSIUM,K 4.5 mmol/L (3.6-5.2)
[2023-11-11 05:44] LABS: ANION GAP 10.5 mmol/L (5.0-14.0)
[2023-11-11] MEDS ORDERED: Central Total Parenteral Nutrition Bag SCH (11:00)
[2023-11-12 05:31] LABS: BASOPHILS ABSOLUTE AUTO 0.03 K/uL (0.00-0.10); BASOPHILS PERCENT AUTO 1.2 % (0.1-1.3); EOSINOPHILS ABSOLUTE AUTO 0.11 K/uL (0.00-0.40); EOSINOPHILS PERCENT AUTO 4.5 % (0.0-5.4); HEMATOCRIT 22.3 % (38.4-49.7); HEMOGLOBIN 7.4 g/dL (12.9-16.9); IMMATURE GRAN PERCENT AUTO 0.4 % (0.0-0.7); LYMPHOCYTES ABSOLUTE AUTO 0.88 K/uL (0.8-3.3); LYMPHOCYTES PERCENT AUTO 35.6 % (11.4-47.7); MEAN CORPUSCULAR HEMOGLOBIN 34.9 pg (31.6-35.5); MEAN CORPUSCULAR HGB CONC 33.2 g/dL (31.6-35.5); MEAN CORPUSCULAR VOLUME 105.2 fL (81.4-99.0); MONOCYTES ABSOLUTE AUTO 0.34 K/uL (0.20-0.90); MONOCYTES PERCENT AUTO 13.8 % (3.3-12.6); NEUTROPHILS PERCENT AUTO 44.5 % (40.0-78.1); PLATELET COUNT,PLT 210 K/uL (130-375); RED BLOOD CELL COUNT 2.12 M/uL (4.14-5.76); WHITE BLOOD CELL COUNT,WBC 2.5 K/uL (3.2-11.0)
[2023-11-12 05:52] LABS: IMMATURE GRAN ABSOLUTE AUTO 0.01 K/uL (0.00-0.23)
[2023-11-12 05:56] LABS: CALCIUM 7.5 mg/dL (8.5-10.1); CREATININE 0.7 mg/dL (0.8-1.3); EST CRCL DRUG DOSING (CG) 105.2 mL/min; MAGNESIUM 1.8 mg/dL (1.8-2.4); POTASSIUM,K 4.5 mmol/L (3.6-5.2)
[2023-11-12 06:00] LABS: ANION GAP 9.5 mmol/L (5.0-14.0)
[2023-11-12] MEDS ORDERED: Central Total Parenteral Nutrition Bag SCH (13:45)
[2023-11-13 10:54] LABS: CALCIUM 7.2 mg/dL (8.5-10.1); CREATININE 0.7 mg/dL (0.8-1.3); EST CRCL DRUG DOSING (CG) 105.2 mL/min; MAGNESIUM 1.8 mg/dL (1.8-2.4); PHOSPHORUS 4.1 mg/dL (2.5-4.9); POTASSIUM,K 4.2 mmol/L (3.6-5.2)
[2023-11-13 11:58] LABS: ANION GAP 9.2 mmol/L (5.0-14.0)
[2023-11-13] MEDS ORDERED: Central Total Parenteral Nutrition Bag SCH (13:45)
[2023-11-14] MEDS ORDERED: Central Total Parenteral Nutrition Bag SCH (12:30)
[2023-11-15 05:49] LABS: HEMATOCRIT 20.4 % (38.4-49.7); MEAN CORPUSCULAR HEMOGLOBIN 35.4 pg (31.6-35.5); MEAN CORPUSCULAR HGB CONC 33.3 g/dL (31.6-35.5); MEAN CORPUSCULAR VOLUME 106.3 fL (81.4-99.0); RED BLOOD CELL COUNT 1.92 M/uL (4.14-5.76); WHITE BLOOD CELL COUNT,WBC 2.5 K/uL (3.2-11.0)
[2023-11-15 05:57] LABS: HEMOGLOBIN 6.8 g/dL (12.9-16.9)
[2023-11-15 06:21] LABS: A/G RATIO 0.9 (1.2-2.2); ALANINE AMINOTRANSFERASE,ALT 51 U/L (12-78); ALBUMIN 2.1 g/dL (3.4-5.0); ALKALINE PHOSPHATASE 96 U/L (46-116); ASPARTATE AMNIOTRANSFERASE,AST 25 U/L (15-37); BILIRUBIN TOTAL 0.4 mg/dL (0.2-1.0); BLOOD UREA NITROGEN,BUN 26 mg/dL (7-18); CALCIUM 7.4 mg/dL (8.5-10.1); CARBON DIOXIDE,CO2 25 mmol/L (21-32); CHLORIDE,CL 106 mmol/L (100-108); CREATININE 0.7 mg/dL (0.8-1.3); EST CRCL DRUG DOSING (CG) 107.27 mL/min; ESTIMATED GFR 104 mL/min (>60); GLUCOSE RANDOM 121 mg/dL (74-106); MAGNESIUM 1.7 mg/dL (1.8-2.4); PHOSPHORUS 3.8 mg/dL (2.5-4.9); POTASSIUM,K 4.3 mmol/L (3.6-5.2); PROTEIN TOTAL,TP 4.5 g/dL (6.4-8.2); SODIUM,NA 136 mmol/L (140-148)
[2023-11-15 06:30] LABS: ANION GAP 9.3 mmol/L (5.0-14.0)
[2023-11-15] MEDS: Magnesium Sulfate/Water 2 GM in Premix Bag 1 BAG IV ONE (10:00)
[2023-11-15] MEDS ORDERED: Central Total Parenteral Nutrition Bag SCH (17:15)
[2023-11-16 06:11] LABS: HEMATOCRIT 24.7 % (38.4-49.7); HEMOGLOBIN 8.2 g/dL (12.9-16.9); MEAN CORPUSCULAR HEMOGLOBIN 33.5 pg (31.6-35.5); MEAN CORPUSCULAR HGB CONC 33.2 g/dL (31.6-35.5); MEAN CORPUSCULAR VOLUME 100.8 fL (81.4-99.0); RED BLOOD CELL COUNT 2.45 M/uL (4.14-5.76); WHITE BLOOD CELL COUNT,WBC 2.9 K/uL (3.2-11.0)
[2023-11-16] MEDS ORDERED: Central Total Parenteral Nutrition Bag SCH (15:00)
[2023-11-18] MEDS ORDERED: Central Total Parenteral Nutrition Bag SCH (14:30)
[2023-11-19 03:29] LABS: HEMATOCRIT 24.4 % (38.4-49.7); HEMOGLOBIN 8.1 g/dL (12.9-16.9); MEAN CORPUSCULAR HEMOGLOBIN 33.8 pg (31.6-35.5); MEAN CORPUSCULAR HGB CONC 33.2 g/dL (31.6-35.5); MEAN CORPUSCULAR VOLUME 101.7 fL (81.4-99.0); RED BLOOD CELL COUNT 2.4 M/uL (4.14-5.76); WHITE BLOOD CELL COUNT,WBC 2.9 K/uL (3.2-11.0)
[2023-11-19 03:44] LABS: CREATININE 0.7 mg/dL (0.8-1.3); EST CRCL DRUG DOSING (CG) 108.52 mL/min; MAGNESIUM 1.5 mg/dL (1.8-2.4); POTASSIUM,K 4.1 mmol/L (3.6-5.2)
[2023-11-19 03:50] LABS: ANION GAP 10.1 mmol/L (5.0-14.0)
[2023-11-19 03:51] LABS: CALCIUM 6.9 mg/dL (8.5-10.1)
[2023-11-19] MEDS: Magnesium Sulfate/Water 2 GM in Premix Bag 1 BAG IV SCH ×2 (05:34→18:09)
[2023-11-19] MEDS ORDERED: Magnesium Sulfate/Water 2 GM in Premix Bag 1 BAG IV ONE (07:41)
[2023-11-19] MEDS: Calcium Gluconate 1 GM in Sodium Chloride 0.9% 100 ML IV ONE (09:24)
[2023-11-19] MEDS ORDERED: Central Total Parenteral Nutrition Bag SCH (16:30)
[2023-11-19] MEDS: Magnesium Oxide 400 MG Tab PO SCH (21:06)
[2023-11-20 06:27] LABS: HEMATOCRIT 25.1 % (38.4-49.7); HEMOGLOBIN 8.3 g/dL (12.9-16.9); MEAN CORPUSCULAR HEMOGLOBIN 33.5 pg (31.6-35.5); MEAN CORPUSCULAR HGB CONC 33.1 g/dL (31.6-35.5); MEAN CORPUSCULAR VOLUME 101.2 fL (81.4-99.0); RED BLOOD CELL COUNT 2.48 M/uL (4.14-5.76)
[2023-11-20 06:56] LABS: ANION GAP 8.3 mmol/L (5.0-14.0); CALCIUM 7.3 mg/dL (8.5-10.1); CREATININE 0.7 mg/dL (0.8-1.3); EST CRCL DRUG DOSING (CG) 107.97 mL/min; MAGNESIUM 2.3 mg/dL (1.8-2.4); POTASSIUM,K 4.3 mmol/L (3.6-5.2)
[2023-11-20] MEDS: Scopalamine 1mg/3day Transdermal Patch TRDERM SCH (14:45)
[2023-11-21 14:04] VITALS: BP 103/62; PULSE 64
== END 2023-11-21 14:20 | disposition home or self-care (01) | DRG 641 ==
LOC: JP.SDS 09:45 → JP.MS 17:08
PROVIDERS: ADMIT Student in an Organized Health Care Education/Training Program; ATTEND Student in an Organized Health Care Education/Training Program
PROC: 0DJ08ZZ Inspection of Upper Intestinal Tract, Via Natural or Artificial Opening Endoscopic (ICD-10-PCS; 2023-10-29)
PROC: 3E0336Z Introduction of Nutritional Substance into Peripheral Vein, Percutaneous Approach (ICD-10-PCS; principal; 2023-10-29 11:45)
DX: E43 Unspecified severe protein-calorie malnutrition (principal); R31.0 Gross hematuria; D64.9 Anemia, unspecified; E83.51 Hypocalcemia; E83.42 Hypomagnesemia; E87.6 Hypokalemia; K29.70 Gastritis, unspecified, without bleeding; E53.1 Pyridoxine deficiency; I48.91 Unspecified atrial fibrillation; I25.10 Atherosclerotic heart disease of native coronary artery without angina pectoris; I10 Essential (primary) hypertension; K21.9 Gastro-esophageal reflux disease without esophagitis; N40.0 Benign prostatic hyperplasia without lower urinary tract symptoms; F22 Delusional disorders; E11.21 Type 2 diabetes mellitus with diabetic nephropathy; R31.9 Hematuria, unspecified; G43.909 Migraine, unspecified, not intractable, without status migrainosus; F41.8 Other specified anxiety disorders; E03.9 Hypothyroidism, unspecified; D50.9 Iron deficiency anemia, unspecified; Z98.890 Other specified postprocedural states; Z79.899 Other long term (current) drug therapy; Z98.84 Bariatric surgery status; Z79.82 Long term (current) use of aspirin; Z95.5 Presence of coronary angioplasty implant and graft; Z79.51 Long term (current) use of inhaled steroids; Z90.89 Acquired absence of other organs; Z90.49 Acquired absence of other specified parts of digestive tract; Z87.891 Personal history of nicotine dependence; Z79.4 Long term (current) use of insulin; Z68.21 Body mass index [BMI] 21.0-21.9, adult
CPT/HCPCS: 0241U; 36415; 36430; 36569; 74177; 74177-26; 80048; 80053; 80061; 80076; 81001; 82040; 82180; 82272; 82330; 82525; 82607; 82652; 82728; 82947; 83550; 83735; 84075; 84100; 84134; 84207; 84255; 84425; 84443; 84446; 84478; 84590; 84591; 84597; 84630; 85014; 85018; 85025; 85027; 85610; 86850; 86900; 86901; 86920; 86922; 87086; 93005; 93010; 93306; 97110-GP; 97161-GP; 97530-GP; 99232; A9270-GY; C1751; C9113; J0612; J1815; J2405; J2704; J2765; J3010; J3411; J3475; J3480; J3490; J7120; P9016; Q0162; Q9967